=== PATIENT | male | born 1960 | race African-American/Black ===

== ENCOUNTER 2018-04-04 10:50 | Inpatient (IN) ==
[2018-04-04] MEDS ORDERED: TYLENOL PO PRN (11:36)
[2018-04-04] MEDS ORDERED: SODIUM CHLORIDE 0.9% INJ PRN (11:36)
[2018-04-04] MEDS ORDERED: PHENERGAN IV PRN (11:36)
[2018-04-04] MEDS: DUONEB (A & A) INH SCH ×4 (12:05→23:05)
[2018-04-04 12:12] LABS: BASO# 0.01 X1000 (0.0-0.2); BASO% 0.2 % (0.0-0.8); EOS# 0.02 X1000 (0.0-0.7); EOS% 0.4 % (0.0-10.0); HEMATOCRIT 45.5 % (42.0-52.0); HEMOGLOBIN 15.3 g/dL (14.0-18.0); LYMPH# 1.14 X1000 (1.2-3.4); LYMPH% 21.8 % (20.5-51.1); MCH 27.9 PG (27-31); MCHC 33.6 g/dL (33-37); MCV 82.9 FL (81-99); MONO# 0.42 X1000 (0.11-0.59); MPV 9.4 FL (7.4-10.4); NEUT# 3.65 X1000 (1.4-6.5); NEUT% 69.6 % (42.2-75.2); PLT 212 X1000 (130-400); RBC 5.49 XMIL (4.7-6.1); RDW 12.8 % (11.5-14.5); WBC 5.24 X1000 (4.8-10.8)
[2018-04-04 12:34] LABS: AGAP 13; BUN 16 mg/dL (8-22); CALCIUM 9.9 mg/dL (8.8-10.2); CHLORIDE 94 mmol/L (98-107); COSMO 279; CREATININE 1.1 mg/dL (0.7-1.2); ESTIMATED GFR > 60; GLUCOSE 104 mg/dL (70-104); POTASSIUM 3.5 mmol/L (3.5-5.1); SODIUM 139 mmol/L (136-145); TCO2 32 mmol/L (25-35)
--- NOTE | 2018-04-04 12:39 | Diag Imaging Result Doc PS360 ---
CHEST-2 VIEWS - 04/04/2018 INDICATION: COPD EXACERBATION COMPARISON: 08/26/2017 FINDINGS: Stable advanced COPD. No infiltrates or masses. No pneumothorax or pleural effusion. Heart size is normal. Stable bilateral hilar lymphadenopathy. IMPRESSION: No change from prior. Electronically signed by Joce Marcano 04/04/2018 12:37 PM
[2018-04-04] MEDS: NS 1,000 ML IV SCH (13:04)
[2018-04-04] MEDS: LEVAQUIN 500 MG/D5W 500 MG/100 ML IVPB IV SCH (13:04)
[2018-04-04] MEDS: WELLBUTRIN SR PO SCH (13:04)
[2018-04-04] MEDS: SOLU-MEDROL IV SCH ×3 (13:05→23:21)
[2018-04-04] MEDS: LOVENOX SUBQ SCH (13:05)
[2018-04-04] MEDS: TUSSIONEX LIQUID PO PRN (20:05)
[2018-04-04] MEDS: LIPITOR PO SCH (20:05)
[2018-04-04] MEDS: REMERON PO SCH (20:05)
[2018-04-04] MEDS: ZOLOFT PO SCH (20:06)
[2018-04-05] MEDS: DUONEB (A & A) INH SCH ×6 (03:05→23:10)
[2018-04-05] MEDS: NS 1,000 ML IV SCH ×2 (04:18→18:07)
[2018-04-05] MEDS: WELLBUTRIN SR PO SCH ×3 (05:00→14:37)
[2018-04-05] MEDS: SOLU-MEDROL IV SCH ×4 (05:00→23:17)
[2018-04-05] MEDS: PATIENT'S OWN MED PO SCH (10:15)
[2018-04-05] MEDS: PROTONIX PO SCH (11:32)
[2018-04-05] MEDS: LOVENOX SUBQ SCH (11:32)
[2018-04-05] MEDS: LEVAQUIN 500 MG/D5W 500 MG/100 ML IVPB IV SCH (11:32)
--- NOTE | 2018-04-05 13:24 | PROGRESS NOTE ---
DATE: 04/05/2018 SUBJECTIVE: The patient was admitted yesterday with an acute exacerbation of chronic obstructive pulmonary disease. The patient had failed outpatient treatment with antibiotic intervention. The patient was placed on IV Solu-Medrol, levofloxacin, oxygen supplementation, and routine bronchodilators. Over the course of the first 24 hours, the patient states he has achieved significant improvement. He notes a decrease in his work of breathing. He denies fevers, chills, nausea or vomiting at the present time. His p.o. intake is adequate. OBJECTIVE: T-max 98.4, heart rate 77 to 95, respirations 14 to 20, blood pressure 98 to 126/59 to 84. General: Thin in no acute distress. Cardiovascular: Regular rate and rhythm. No significant murmurs, rubs, or gallops. Pulmonary: Prolonged expiratory phase. Adequate air movement. Abdomen soft, nontender, nondistended. Positive bowel sounds. Extremities: Moves all extremities well. No significant clubbing, cyanosis, or edema. Dermatologic evaluation reveals no evidence of rash. LABORATORY DATA: White blood cell count 5.24, hemoglobin 15.3, hematocrit 45.5. Platelet count 212,000. Sodium 139, potassium 3.5, chloride 94, bicarb 32. BUN 16, creatinine 1.1, glucose 104. Calcium 9.9. Chest x-ray revealed no evidence of pneumonia. ASSESSMENT AND PLAN: 1. Acute exacerbation of chronic obstructive pulmonary disease - As described, the patient failed outpatient intervention. Over the course of the first 24 hours, the patient's symptoms have improved considerably. For now, we will continue his current regimen including levofloxacin, Solu-Medrol, and DuoNeb. We will encourage incentive spirometry and aspiration precautions. If the patient's condition continues to improve in the morning, we will plan to initiate prednisone taper. 2. Reflux disease - The patient has longstanding disease. He complains of intermittent burning in his chest with eating. We will resume his pantoprazole therapy. 3. Depression - We will continue patient's home regimen. 4. Hyperlipidemia - We will continue patient on atorvastatin therapy. DISPOSITION: At this point, the patient continues to require [facility] care in a hospital setting. We will plan discharge home once appropriate. cc: MD Servando Iqbal MD
[2018-04-05] MEDS: SPIRIVA INH SCH ×2 (15:34→15:56)
[2018-04-05] MEDS: REMERON PO SCH (20:36)
[2018-04-05] MEDS: TUSSIONEX LIQUID PO PRN (20:36)
[2018-04-05] MEDS: ZOLOFT PO SCH (20:36)
[2018-04-05] MEDS: LIPITOR PO SCH (20:36)
[2018-04-06] MEDS: SOLU-MEDROL IV SCH ×4 (05:34→23:09)
[2018-04-06] MEDS: WELLBUTRIN SR PO SCH ×3 (05:34→12:11)
[2018-04-06] MEDS: PROTONIX PO SCH ×2 (05:34→06:02)
[2018-04-06] MEDS: NS 1,000 ML IV SCH (05:35)
[2018-04-06] MEDS: DUONEB (A & A) INH SCH ×5 (07:47→23:20)
[2018-04-06] MEDS: SPIRIVA INH SCH ×2 (07:47→09:20)
--- NOTE | 2018-04-06 10:09 | Diag Imaging Result Doc PS360 ---
EXAM: CHEST-2 VIEWS INDICATION: Shortness of breath TECHNIQUE: 2 views COMPARISON: 04/04/2018 FINDINGS: COPD changes are again noted. The lungs are grossly clear. There is no new consolidation. Cardiac silhouette is stable. IMPRESSION: Stable chest. Electronically signed by Carl Wilson 04/06/2018 10:06 AM
[2018-04-06] MEDS: PATIENT'S OWN MED PO SCH (10:30)
[2018-04-06] MEDS: LEVAQUIN 500 MG/D5W 500 MG/100 ML IVPB IV SCH (10:52)
[2018-04-06] MEDS: LOVENOX SUBQ SCH (10:52)
[2018-04-06] MEDS: MUCINEX DM PO SCH ×2 (10:52→21:08)
--- NOTE | 2018-04-06 12:29 | PROGRESS NOTE ---
DATE: 04/06/2018 SUBJECTIVE: The patient was admitted on Saturday with an acute exacerbation of chronic obstructive pulmonary disease having failed outpatient antibiotic intervention. He was started on IV Solu- Medrol, levofloxacin, oxygen supplementation, and routine bronchodilators. Over the course of the first 24 hours, patient achieved significant improvement. The patient was continued on IV Solu- Medrol, IV antibiotics and bronchodilators. Over the last 24 hours, patient states he did reasonably well until this morning. At that time, he noted an increase in wheezing. He notes some posterior pharyngeal congestion and some mild shortness of breath. He denies fevers, chills, nausea, or vomiting. His p.o. intake is reasonable. OBJECTIVE: T-max 97.8 degrees, heart rate 78 to 87, respirations 14, blood pressure 103-129/56 to 76.General: Thin, no acute distress. Cardiovascular: Regular rate and rhythm. No significant murmurs, rubs, or gallops. Pulmonary: Mild intermittent wheezing, worse from yesterday. Adequate air movement. Abdomen: Soft, nontender, nondistended. Positive bowel sounds. Extremities: Moves all extremities well. No significant clubbing, cyanosis, or edema. Dermatologic: Evaluation reveals no evidence of rash. LABORATORY DATA: None. IMAGING STUDIES: Chest x-ray revealed stable chest. ASSESSMENT AND PLAN: 1. Acute exacerbation of chronic obstructive pulmonary disease--the patient is currently being treated with intravenous levofloxacin, Solu-Medrol, and DuoNebs. In the setting of persistent wheezing, we will hold off on beginning his steroid taper as I had originally planned. Chest x-ray, as above, revealed no evidence of a progression of disease. We will initiate Mucinex DM. We will continue to encourage incentive spirometry and aspiration precautions. We will discontinue intravenous fluids. At this point, we will hold off on any additional changes. Should the patient demonstrate evidence of a decline, we will have a low threshold for broadening his antibiotic intervention. 2. Reflux disease--patient has longstanding disease. The patient's pantoprazole was resumed yesterday. We will encourage aspiration precautions. 3. Depression--will continue patient on his home regimen. 4. Hyperlipidemia--we will continue patient on atorvastatin therapy. 5. Disposition--at this point, patient continues to require halfway care in a hospital setting. We will plan discharge home once appropriate. cc: MD Servando Iqbal MD
[2018-04-06] MEDS: LIPITOR PO SCH (21:08)
[2018-04-06] MEDS: REMERON PO SCH (21:08)
[2018-04-06] MEDS: ZOLOFT PO SCH (21:08)
[2018-04-06] MEDS: TUSSIONEX LIQUID PO PRN (21:08)
[2018-04-07] MEDS: DUONEB (A & A) INH SCH ×6 (03:24→23:02)
[2018-04-07] MEDS: SOLU-MEDROL IV SCH ×4 (05:54→21:43)
[2018-04-07] MEDS: WELLBUTRIN SR PO SCH ×3 (05:54→12:02)
[2018-04-07] MEDS: PROTONIX PO SCH ×2 (05:54→06:02)
[2018-04-07] MEDS: SPIRIVA INH SCH (08:44)
--- NOTE | 2018-04-07 08:51 | PROGRESS NOTE ---
DATE: 04/07/2018 SUBJECTIVE: Mr. Cat was admitted to [facility] with acute COPD exacerbation. He continues with mild shortness of breath while walking from his bed to the bathroom, and a mild persistent cough. At times, the cough is productive of yellowish sputum. Chest x-ray from 04/06/2018 demonstrated hyperinflation of the lung harrell, but no obvious infiltrates or effusions. He continues to wheeze. OBJECTIVE: Vital Signs: Temperature 97.8 degrees, pulse 87, respirations 14, BP 103/56. CV: Regular rate and rhythm. Lungs: Distant breath sounds with increased periods of expiration. There are scattered end-expiratory wheezing with forced expiration. Abdomen: Soft, nontender, with active bowel sounds. ASSESSMENT AND PLAN: Acute chronic obstructive pulmonary disease exacerbation. Clinically, he is a little bit better. He is still wheezing and has a productive cough. We will continue Spiriva hand inhaler, intravenous Solu-Medrol, and DuoNeb nebulizer treatments, as well as intravenous Levaquin. I will add Symbicort 160/4.5 two puffs twice daily. cc: Servando Scott MD
[2018-04-07] MEDS: TUSSIONEX LIQUID PO PRN (10:06)
[2018-04-07] MEDS: MUCINEX DM PO SCH ×2 (10:06→21:44)
[2018-04-07] MEDS: PATIENT'S OWN MED PO SCH (10:08)
[2018-04-07] MEDS: SYMBICORT 160/4.5 MICROGM INHALER INH SCH ×2 (11:14→19:15)
[2018-04-07] MEDS: LEVAQUIN 500 MG/D5W 500 MG/100 ML IVPB IV SCH (12:02)
[2018-04-07] MEDS: LOVENOX SUBQ SCH (12:02)
[2018-04-07] MEDS: LIPITOR PO SCH (21:44)
[2018-04-07] MEDS: ZOLOFT PO SCH (21:44)
[2018-04-07] MEDS: REMERON PO SCH (21:44)
[2018-04-08] MEDS: DUONEB (A & A) INH SCH ×3 (03:30→11:07)
[2018-04-08] MEDS: WELLBUTRIN SR PO SCH ×2 (06:00→12:30)
[2018-04-08] MEDS: PROTONIX PO SCH (06:00)
[2018-04-08] MEDS: SOLU-MEDROL IV SCH ×2 (06:00)
[2018-04-08] MEDS: SYMBICORT 160/4.5 MICROGM INHALER INH SCH (07:31)
[2018-04-08] MEDS: SPIRIVA INH SCH ×2 (07:31→09:31)
[2018-04-08] MEDS: PATIENT'S OWN MED PO SCH (08:53)
[2018-04-08] MEDS: MUCINEX DM PO SCH (08:53)
[2018-04-08] MEDS: TUSSIONEX LIQUID PO PRN (09:00)
[2018-04-08] MEDS ORDERED: COZAAR PO SCH (09:00)
--- NOTE | 2018-04-08 09:06 | PROGRESS NOTE ---
DATE: 04/08/2018 SUBJECTIVE: Mr. Hammond was admitted to [facility] with an acute COPD exacerbation. He is maintaining O2 sats of 92%-96% on 2 L of O2. We removed his oxygen and, while sitting up in bed, his O2 sat dropped to 84%. He continues with mild shortness of breath with activities such as walking from the bed to the bathroom. His chest x-ray demonstrated chronic COPD changes. He is really not wheezing significantly at this time. His blood pressure is fluctuating. He denies any chest pain, palpitations, or anginal equivalents. OBJECTIVE: This morning, his blood pressure was 163/95, pulse 82, respirations 18, temperature 97.6. CV: Regular rate and rhythm. Lungs: Distant breath sounds with increased period of expiration. Abdomen: Soft, nontender, with active bowel sounds. ASSESSMENT AND PLAN: 1. Chronic respiratory failure with hypoxia secondary to chronic obstructive pulmonary disease with a history of tobacco abuse. Clinically, he feels better but was hypoxic on room air. We will resume 2 L of O2 per nasal cannula. I anticipate that he is going to need chronic continuous home oxygen. We will arrange for a home oxygen concentrator, as well as a portable concentrator. We will continue Advair, Spiriva, DuoNeb nebulizer treatments, and wean down on the IV steroids. 2. Hypertension. Blood pressure is a little bit too high. I will add losartan 25 mg daily. cc: Servadno Scott MD
[2018-04-08] MEDS: LOVENOX SUBQ SCH (10:43)
[2018-04-08] MEDS: LEVAQUIN 500 MG/D5W 500 MG/100 ML IVPB IV SCH (10:43)
[2018-04-08 11:45] VITALS: BP 151/86
[2018-04-08] MEDS ORDERED: SOLU-MEDROL IV SCH (14:00)
[2018-04-08] MEDS ORDERED: DUONEB (A & A) INH SCH (16:00)
--- NOTE | 2018-04-08 22:07 | DISCHARGE SUMMARY ---
ADMISSION DATE: 04/04/2018 DISCHARGE DATE: 04/08/2018 DISCHARGE DIAGNOSES: 1. Chronic respiratory failure with hypoxia. 2. Acute chronic obstructive pulmonary disease exacerbation with bronchitis. 3. Nicotine dependence. 4. Essential hypertension. 5. Gastroesophageal reflux disease. 6. Depression. DISCHARGE INSTRUCTIONS: 1. Return to clinic in 1 week to see me, Dr. Zaeher Scott. 2. Activity as tolerated. 3. Healthy-heart diet. MEDICATIONS: 1. DuoNeb nebulized t.i.d. 2. Remeron 15 mg at bedtime. 3. Atorvastatin 40 mg at bedtime. 4. Bupropion SR 150 mg b.i.d. 5. Tussionex 5 mL every 12 hours p.r.n. cough. 6. Losartan 25 mg daily. 7. Spiriva 1 inhalation daily. 8. Advair 250/50 2 puffs b.i.d. 9. Zoloft 50 mg daily. 10.Pantoprazole 40 mg daily. PHYSICAL EXAMINATION: GENERAL: This is a well-developed, well-nourished, pleasant 57-year-old gentleman in no apparent distress. VITAL SIGNS: Temperature 98, pulse 88, respiratory rate 18, BP 151/86. CV: Regular rate and rhythm. LUNGS: Distant breath sounds with increased period of expiration. ABDOMEN: Soft and nontender with active bowel sounds. No hepatosplenomegaly. No abdominal bruits. HOSPITAL COURSE: Mr. Bonifacio Cat is a 57-year-old gentleman with a longstanding history of chronic obstructive pulmonary disease and sarcoidosis who was admitted to [facility] with an acute chronic obstructive pulmonary disease exacerbation. He was initially treated with supplemental O2, IV Levaquin, IV Solu-Medrol, and DuoNeb nebulizer treatments. He was continued on his regular home medicines including Spiriva and Advair. His initial chest x-ray demonstrated chronic obstructive pulmonary disease type changes. A subsequent chest x-ray demonstrated chronic obstructive pulmonary disease type changes but no evidence of infiltrate or effusions. Over the course of the next several days, he made good steady progress with aggressive therapy, and we were able to titrate downward on the dosage of IV Solu-Medrol. We checked a room O2 saturation when the patient was in chronic stable condition today, and it was 84%. We resumed O2 at 2 liters per nasal cannula, and his O2 saturations were in the range of 96% to 98%. He does have a longstanding history of tobacco abuse. He has been smoking a pack of cigarettes per day. I really stressed to him the fact that continued smoking would only worsen his underlying chronic obstructive pulmonary disease and would greatly increase his risk of developing heart disease, stroke and lung cancer. He voiced understanding of my concerns and wanted to try to stop smoking. He had tried Chantix in the past. We started him on Wellbutrin SR 150 mg b.i.d., which he tolerated well without vivid dreams or suicidal ideation. He has had both a Pneumovax as well as Prevnar vaccinations in the past. We will discharge him home on his regular medications, including Advair 250/50 2 puffs b.i.d. and Spiriva 1 inhalation daily. He will continue a prednisone taper. We will arrange for him to do DuoNeb nebulizer treatments at home. We have arranged for a home concentrator and a portable O2 concentrator. He will wear O2 at 2 liters per nasal cannula continuously. His blood pressure fluctuated during this hospitalization, and we added Losartan 25 mg daily. Having reached maximum hospital benefit, the patient was discharged in stable condition. cc: Servando Scott MD
[2018-04-09] MEDS ORDERED: PREDNISONE PO SCH (09:00)
[2018-04-12] MEDS ORDERED: PREDNISONE PO SCH (09:00)
[2018-04-15] MEDS ORDERED: PREDNISONE PO SCH (09:00)
== END 2018-04-08 16:53 | disposition home or self-care (01) | DRG 190 ==
LOC: DIRADM 10:50 → 4N 11:18
PROVIDERS: ADMIT Internal Medicine; ATTEND Internal Medicine
CPT/HCPCS: 71020; 71046; 80048; 85025; 87040; 87070; 87205; 89220; 94640; 94761; 94799; A9270; J1650; J1956; J2930; J7030

== ENCOUNTER 2019-06-05 08:58 | Inpatient (IN) ==
[2019-06-05] MEDS ORDERED: SODIUM CHLORIDE 0.9% INJ PRN (10:04)
[2019-06-05] MEDS ORDERED: NS 500 ML IV ONE (10:04)
[2019-06-05] MEDS ORDERED: VENTOLIN HFA INH PRN (10:19)
[2019-06-05] MEDS: FLAGYL 500 MG/NS 500 MG/100 ML IVPB IV SCH ×3 (11:00→22:42)
[2019-06-05 11:23] LABS: BASO# 0.02 X1000 (0.0-0.2); BASO% 0.2 % (0.0-0.8); EOS# 0.01 X1000 (0.0-0.7); EOS% 0.1 % (0.0-10.0); HEMATOCRIT 41.7 % (42.0-52.0); HEMOGLOBIN 14.2 g/dL (14.0-18.0); IMM GRAN# 0.03 X1000 (0.0-0.04); IMM GRAN% 0.3 % (0.0-0.5); LYMPH# 0.41 X1000 (1.2-3.4); LYMPH% 3.6 % (20.5-51.1); MCH 28.9 PG (27-31); MCHC 34.1 g/dL (33-37); MCV 84.9 FL (81-99); MONO# 0.39 X1000 (0.11-0.59); MONO% 3.4 % (1.7-9.3); MPV 10.2 FL (7.4-10.4); NEUT# 10.56 X1000 (1.4-6.5); NEUT% 92.4 % (42.2-75.2); PLT 306 X1000 (130-400); RBC 4.91 XMIL (4.7-6.1); RDW 13.7 % (11.5-14.5); WBC 11.42 X1000 (4.8-10.8)
[2019-06-05] MEDS: NS 1,000 ML IV SCH ×2 (11:30→22:43)
[2019-06-05 11:31] LABS: INR 0.97
[2019-06-05 11:32] LABS: AGAP 15; BUN 20 mg/dL (8-22); CALCIUM 9.4 mg/dL (8.8-10.2); CHLORIDE 93 mmol/L (98-107); COSMO 271; ESTIMATED GFR > 60; GLUCOSE 108 mg/dL (70-104); POTASSIUM 3.7 mmol/L (3.5-5.1); SODIUM 134 mmol/L (136-145); TCO2 26 mmol/L (25-35)
[2019-06-05] MEDS: PHENERGAN IV PRN ×2 (11:42→23:03)
[2019-06-05] MEDS: LEVAQUIN 500 MG/D5W 500 MG/100 ML IVPB IV SCH (11:45)
[2019-06-05] MEDS: DUONEB (A & A) INH SCH ×4 (11:52→23:46)
[2019-06-05 11:54] LABS: BANDS 16 % (0-1); LYMPHS 4 % (21-51); MONO 4 % (1-9); SEGS 76 % (42-75)
[2019-06-05] MEDS ORDERED: DILAUDID IV PRN (12:05)
--- NOTE | 2019-06-05 12:16 | Diag Imaging Result Doc PS360 ---
EXAM: CHEST-PORTABLE 06/05/2019 HISTORY: copd TECHNIQUE: AP portable at 1211 COMMENT: There may be COPD. The heart size and pulmonary vascularity are within normal limits. Compared to 01/19/2019 there has been no significant change. IMPRESSION: No evidence of acute disease. Electronically signed by Sathish Santamaria 06/05/2019 12:14 PM
--- NOTE | 2019-06-05 13:15 | Diag Imaging Result Doc PS360 ---
EXAM: CT ABDOMEN/PELVIS W/WO CONTRAS 06/05/2019 HISTORY: severe RLQ PAIN, SUSPECT ACUTE APPENDICITIS TECHNIQUE: This exam was performed using automated exposure control, adjustment of mA or kV according to patient size, and/or use of iterative reconstruction technique. COMMENT: There is COPD. The dependent opacities present in the costophrenic sulci bilaterally on 09/05/2015 are no longer present. There is no evidence of nephrolithiasis or hydronephrosis. There is no evidence of cholelithiasis. There are scattered colonic diverticula. The aorta is not distended. The mesenteric and renal arteries are patent. There are no renal masses. The spleen and adrenal glands are not enlarged. The liver contains a small cyst near the gallbladder fossa. The pancreas is unremarkable. There is no evidence of bowel obstruction. Pelvis: There are multiple fluid-filled small bowel loops. There is no oral contrast in the distal small bowel colon. The urinary bladder is not distended. There is no free fluid. There are numerous diverticula present in the sigmoid colon. There is pericolic inflammation around the sigmoid colon. The appendix is not clearly identifiable. The regional skeleton is intact. IMPRESSION: While the possibility of appendicitis cannot be entirely excluded, the inflammatory process in the pelvis is apparently related to acute diverticulitis. There is also an apparent localized ileus. Electronically signed by Sathish Santamaria 06/05/2019 1:13 PM
[2019-06-05 14:41] LABS: PTT < 20.0 Seconds (22.3-41.8)
[2019-06-05] MEDS: TYLENOL PO PRN (16:28)
[2019-06-05] MEDS: MORPHINE IV PRN (18:07)
--- NOTE | 2019-06-05 18:13 | PROGRESS NOTE ---
DATE: 06/05/2019 SUBJECTIVE: Mr. Cat was admitted to [facility] earlier this morning with severe right lower quadrant abdominal pain in association with nausea and vomiting. CT scan of the abdomen and pelvis demonstrated pericolic inflammation around the sigmoid colon. The appendix was not clearly identifiable. He had what appeared to be an early ileus. This afternoon he continues with right lower quadrant abdominal pain, but it seems less intense as compared to admission. He has not had any nausea or vomiting. Pain has improved with IV Dilaudid. Blood pressure is trending upward with fluids and off losartan. OBJECTIVE: Vital signs: Temperature 97.3 degrees, pulse 98, respirations 20, BP 122/64. Cardiovascular: Regular rate and rhythm. Lungs: Clear. Abdomen: Marked right lower quadrant tenderness to deep palpation. There is some guarding. No rebound. IMPRESSION: 1. Acute diverticulitis. Clinically he is better. We will continue to rehydrate him with normal saline and continue broad-spectrum antibiotics including levofloxacin and metronidazole. He has taken sips of liquids this afternoon, and we will advance his diet as tolerated. 2. Hypertension. Blood pressure is trending upward with fluids. We will continue to hold the losartan. Once his systolic blood pressures are greater than 140, we will resume the losartan. cc: Servando Scott MD
[2019-06-06] MEDS: MORPHINE IV PRN ×3 (01:28→17:47)
[2019-06-06] MEDS: DUONEB (A & A) INH SCH ×6 (03:18→23:16)
[2019-06-06] MEDS: FLAGYL 500 MG/NS 500 MG/100 ML IVPB IV SCH ×4 (04:08→22:14)
[2019-06-06] MEDS: PROTONIX PO SCH (06:01)
[2019-06-06] MEDS: NS 1,000 ML IV SCH ×2 (06:06→23:23)
[2019-06-06] MEDS: PHENERGAN IV PRN ×3 (07:01→22:14)
[2019-06-06] MEDS: LEVAQUIN 500 MG/D5W 500 MG/100 ML IVPB IV SCH (09:44)
[2019-06-06] MEDS: ZOLOFT PO SCH (09:44)
[2019-06-06] MEDS: HYGROTON PO SCH (09:45)
[2019-06-06] MEDS ORDERED: SODIUM CHLORIDE 0.9% INJ ONE (11:30)
[2019-06-06] MEDS ORDERED: PHENERGAN IV ONE (11:30)
[2019-06-06 13:47] LABS: BASO# 0.01 X1000 (0.0-0.2); BASO% 0.1 % (0.0-0.8); HEMATOCRIT 37.6 % (42.0-52.0); HEMOGLOBIN 12.2 g/dL (14.0-18.0); MCH 27.7 PG (27-31); MCHC 32.4 g/dL (33-37); MCV 85.3 FL (81-99); MONO# 0.34 X1000 (0.11-0.59); MONO% 3.4 % (1.7-9.3); MPV 9.6 FL (7.4-10.4); NEUT# 9.06 X1000 (1.4-6.5); NEUT% 90.5 % (42.2-75.2); PLT 197 X1000 (130-400); RBC 4.41 XMIL (4.7-6.1); RDW 13.8 % (11.5-14.5); WBC 10.01 X1000 (4.8-10.8)
[2019-06-06 13:53] LABS: AGAP 11; ALB/GLOB RATIO 1.3; ALBUMIN 3.7 g/dL (3.5-5.0); ALKALINE PHOSPHATASE 54 U/L (32-122); BUN 13 mg/dL (8-22); CALCIUM 8.5 mg/dL (8.8-10.2); CHLORIDE 94 mmol/L (98-107); COSMO 270; CREATININE 0.8 mg/dL (0.7-1.2); ESTIMATED GFR > 60; GLUCOSE 120 mg/dL (70-104); GOT 14 U/L (10-34); GPT 8 U/L (10-44); POTASSIUM 2.8 mmol/L (3.5-5.1); SODIUM 134 mmol/L (136-145); TCO2 29 mmol/L (25-35); TOTAL BILIRUBIN 0.39 mg/dL (0.20-1.00); TOTAL PROTEIN 6.5 g/dL (6.3-8.3)
[2019-06-06 14:29] LABS: LARGE PLATELETS OCCASIONAL; LYMPHS 12 % (21-51); MONO 3 % (1-9); SEGS 85 % (42-75)
--- NOTE | 2019-06-06 16:14 | GENERAL SURGERY CONSULTATION ---
DATE: 06/06/2019 REASON FOR CONSULTATION: Diverticulitis. CHIEF COMPLAINT: Lower abdominal pain. HISTORY OF PRESENT ILLNESS: This is a 58-year-old gentleman who has COPD and sarcoidosis. He was admitted yesterday by Dr. Tello Scott for lower abdominal pain. CT scan showed diverticulitis, uncomplicated, but the appendix was not clearly visualized. He showed some improvement with his pain. He remains tender in the lower quadrants of his abdomen. He has had some associated nausea, vomiting. I was consulted for further input. He had a colonoscopy [address] Wyatt. Apparently, he has had bleeding polyps in the past. His brother had colon cancer, but he himself has not had colon cancer. In his usual state of health prior to this. He did have a high-fiber diet highresidual prior to this episode. He attributes it to that. MEDICAL HISTORY: COPD and sarcoid. He is on chronic home O2. SURGICAL HISTORY: He has had a prostatectomy presumably for cancer as well as a laparoscopic hernia repair. SOCIAL HISTORY: He does not smoke currently but did smoke in the past. He is on disability. FAMILY HISTORY: Colon cancer. REVIEW OF SYSTEMS: Ten point negative otherwise that what is mentioned in history of present illness. PHYSICAL EXAMINATION: Vital Signs: No fever documented in the last 24 hours. Heart rate for most part in the 90s low 100s. Blood pressure 130/80, oxygen saturation is 100% on 2 L. General: He is alert. He is very thin, but is in no acute distress. HEENT: No scleral icterus. No cervical masses. Cardiovascular: Normal rate. Pulmonary: No increased work of breathing but he is on nasal cannula. Abdomen: Soft. He is tender in the lower quadrants. There is some voluntary guarding but no rancho rebound or rigidity to suggest peritoneal signs. Peripheral Vascular: No lower extremity edema. Psychiatric: Appropriate affect. Neurologic: No gross deficits. Lymphatic: No cervical, axillary or inguinal adenopathy. LABORATORY DATA: White count was 11.4 on admission, it is down to 10, hematocrit 37. His creatinine is 0.8, potassium low at 2.8. I reviewed his CT scan. ASSESSMENT AND PLAN: A 58-year-old gentleman with uncomplicated diverticulitis stranding in the pelvis. He does apparently have abdominal wall mesh, history of prostatectomy. Given this we will continue with medical management as I do think he is showing some improvement. I am doubtful this is appendicitis after review of his CT scan. I suspect that the inflammation that we are seeing is related to his diverticulitis as he does have a lot of diverticula. He will need follow-up colonoscopy at least 6 weeks after resolution of this given his family history and his personal history of polyps to ensure that this is not an underlying etiology. We did discuss possibility of surgery and likelihood that this would require colostomy if we operate emergently. He understands all this and consents. cc: MD Srevando Pelletier MD MTDD
--- NOTE | 2019-06-06 16:30 | PROGRESS NOTE ---
DATE: 06/06/2019 SUBJECTIVE: The patient was admitted yesterday secondary to intractable right lower abdominal discomfort. CT scan was performed revealing inflammatory process in the pelvis apparently related to an acute diverticulitis. Appendicitis could not be fully ruled out. Apparent localized ileus was also identified. The patient was placed on levofloxacin and metronidazole therapy. Since admission, the patient continues to have considerable abdominal discomfort. He is requiring frequent treatment with Dilaudid as well as frequent treatments of Phenergan for nausea. Upon my arrival, patient was resting in bed. After my examination, patient developed acute vomiting secondary to his pain. He is unable to tolerate p.o. at present time. He denies fevers, chills, shortness of breath, or chest discomfort. OBJECTIVE: T-max 98.6 degrees, heart rate 91 to 100, respirations 16 to 20, blood pressure 111 to 130 over 58 to 82.General: No acute distress. Cardiovascular: Regular rate and rhythm. No significant murmurs, rubs, or gallops. Pulmonary: Prolonged expiratory phase. Adequate air movement. Abdomen: Exquisitely tender in the right lower quadrant, suprapubic and less in the left lower quadrant. Guarding throughout, no rebound. Decreased bowel sounds. Extremities: Moves all extremities well. No significant clubbing, cyanosis, or edema. Dermatologic: Evaluation reveals no evidence of rash. LABORATORY DATA: White blood cell count 10.01, hemoglobin 12.2, hematocrit 37.6, platelet count 197,000. Sodium 134, potassium 2.8, chloride 94, bicarb 29, BUN 13, creatinine 0.8, glucose 120, calcium 8.5, total bilirubin 0.39, total protein 6.5, albumin 3.9, alkaline phosphatase 54, AST 14, ALT 8. ASSESSMENT AND PLAN: 1. Intractable abdominal pain-CT scan suggests the probability of diverticulitis. Appendicitis could not be completely ruled out. The patient's examination remains quite concerning. As described above, patient developed nausea and vomiting after my examination. Because of persistent symptoms as well as inability to completely rule out appendicitis, we will consult Dr. Melendez for further surgical evaluation. At this point, he does not appear toxic, thus acute intervention is not warranted. We will continue levofloxacin and Flagyl therapy. 2. Intractable nausea and vomiting. This is secondary to above. We will place patient NPO. We will continue IV fluids and antibiotic agents. 3. Hypokalemia-we will replete today. This likely is a consequence of his nausea and vomiting. 4. Chronic obstructive pulmonary disease-we will continue patient on oxygen per protocol. 5. Disposition. At this point, patient continues to require half-way care in a hospital setting. We will plan discharge home once appropriate. cc: MD Servando Iqbal MD
[2019-06-06] MEDS: POTASSIUM CHLORIDE 20 MEQ/SWI 20 MEQ/100 ML IVPB IV SCH ×2 (17:45→19:54)
[2019-06-07] MEDS: MORPHINE IV PRN ×3 (01:52→15:33)
[2019-06-07] MEDS: PHENERGAN IV PRN ×4 (01:53→14:31)
[2019-06-07] MEDS: DUONEB (A & A) INH SCH ×6 (03:00→22:41)
[2019-06-07] MEDS: NS 1,000 ML IV SCH ×4 (03:27→22:26)
[2019-06-07] MEDS: FLAGYL 500 MG/NS 500 MG/100 ML IVPB IV SCH ×4 (03:37→22:25)
[2019-06-07 07:00] LABS: HEMATOCRIT 36.7 % (42.0-52.0); HEMOGLOBIN 11.8 g/dL (14.0-18.0); LYMPH% 3.4 % (20.5-51.1); MCH 27.8 PG (27-31); MCHC 32.2 g/dL (33-37); MCV 86.4 FL (81-99); MONO# 0.31 X1000 (0.11-0.59); MONO% 3.5 % (1.7-9.3); MPV 9.7 FL (7.4-10.4); NEUT# 8.13 X1000 (1.4-6.5); NEUT% 93.1 % (42.2-75.2); PLT 200 X1000 (130-400); RBC 4.25 XMIL (4.7-6.1); RDW 13.8 % (11.5-14.5); WBC 8.74 X1000 (4.8-10.8)
[2019-06-07 07:22] LABS: AGAP 14; ALB/GLOB RATIO 1.2; ALBUMIN 3.3 g/dL (3.5-5.0); ALKALINE PHOSPHATASE 52 U/L (32-122); BUN 15 mg/dL (8-22); CALCIUM 8.4 mg/dL (8.8-10.2); CHLORIDE 99 mmol/L (98-107); COSMO 280; CREATININE 0.8 mg/dL (0.7-1.2); ESTIMATED GFR > 60; GLUCOSE 124 mg/dL (70-104); GOT 15 U/L (10-34); GPT 8 U/L (10-44); POTASSIUM 3.1 mmol/L (3.5-5.1); SODIUM 139 mmol/L (136-145); TCO2 26 mmol/L (25-35); TOTAL BILIRUBIN 0.35 mg/dL (0.20-1.00); TOTAL PROTEIN 6.1 g/dL (6.3-8.3)
[2019-06-07] MEDS: NON-FORMULARY MED (Fluticasone/Umeclidin/Vilanter [Trelegy Ellipta 100-62.5-25] 0 EA) INH SCH (09:30)
[2019-06-07] MEDS: ZOLOFT PO SCH (09:32)
[2019-06-07] MEDS: PROTONIX PO SCH (09:32)
[2019-06-07] MEDS: HYGROTON PO SCH (09:32)
[2019-06-07] MEDS: POTASSIUM CHLORIDE 20 MEQ/SWI 20 MEQ/100 ML IVPB IV SCH ×2 (10:52→13:49)
[2019-06-07] MEDS: LEVAQUIN 500 MG/D5W 500 MG/100 ML IVPB IV SCH (10:55)
--- NOTE | 2019-06-07 12:33 | GENERAL SURGERY PROGRESS NOTE ---
DATE: 06/07/2019 SUBJECTIVE: No fevers, no tachycardia overnight. He has had some persistent nausea and vomiting. His pain is improving. OBJECTIVE: On examination, he is alert, in no acute distress. Cardiovascular: Normal rate. Abdomen: Soft. He is tender in the lower quadrants of the abdomen and I feel as though he is more soft and less tender than yesterday, with no rancho peritonitis. White count is 8, hematocrit is 36. Creatinine 0.8. Bilirubin is normal. No further imaging. ASSESSMENT AND PLAN: This is a 58-year-old gentleman with diverticulitis. There is no evidence of perforation or abscess on his initial scan. His pain in the abdominal exam is gradually improving but has been a little slow to do so, but his white count continues to downtrend. He is not have any fever or tachycardia. We will continue close observation. I would like to see him get better significantly over the next 24 to 48 hours. If he were to fail to show improvement, then we will need to consider surgical exploration, possible sigmoid colectomy. I did discuss this matter with the patient. We will continue to follow him closely. cc: MD Servando Pelletier MD
--- NOTE | 2019-06-07 16:49 | GENERAL SURGERY PROGRESS NOTE ---
DATE: 06/07/2019 SUBJECTIVE: Patient has had persistent nausea and vomiting over the course of the day today, increasing abdominal distention. Not really having much more in the way of pain. No fevers. No tachycardia. OBJECTIVE: General: He is alert. He is getting a breathing treatment, but no acute distress. Cardiovascular: Normal rate. Abdomen: Distended, more so than this morning. Remains soft and only mildly tender in the lower quadrants. There is no peritonitis. LABORATORY: I reviewed his labs from this morning. He did have electrolyte abnormalities with a potassium of 3.1; that was up from 2.8 yesterday. ASSESSMENT AND PLAN: This is a 58-year-old gentleman with diverticulitis that was uncomplicated, but now he has developed persistent worsening nausea, vomiting, and abdominal distention. I worry that he has developed an ileus. It is possible that he has developed worsening of his diverticulitis, maybe even an abscess, although I do not suspect that he has peritoneal signs. We will repeat his CT scan stat to evaluate for worsening. I suspect he will require a nasogastric tube and we will see what this shows. I did discuss the possibility of an operation versus an NG tube. cc: MD Servando Pelletier MD
--- NOTE | 2019-06-07 17:20 | PROGRESS NOTE ---
DATE: 06/07/2019 SUBJECTIVE: Upon my arrival this morning, patient was lying in bed. He continues to have considerable abdominal discomfort, however slightly improved from yesterday. Nausea and vomiting persists despite p.r.n. Phenergan. The patient denies passing flatus or having a bowel movement. He denies fevers, chills, shortness of breath, or chest discomfort. OBJECTIVE: T-max 98.6, heart rate 83 to 95, respirations 16 to 20, blood pressure 122 to 142 over 73 to 87.General: Well nourished, well developed, no acute distress. Cardiovascular: Regular rate and rhythm. No significant murmurs, rubs, or gallops. Pulmonary: Expiratory phase. Adequate air movement. Abdomen: Slightly distended. Significantly tender to palpation, worse in the right lower quadrant with guarding but no rebound. Decreased bowel sounds. Extremities: Moves all extremities well. No significant clubbing, cyanosis, or edema. Dermatologic: Evaluation reveals no evidence of rash. LABORATORY DATA: White blood cell count 8.74, hemoglobin 11.8, hematocrit 36.7, platelet count 200,000. Sodium 139, potassium 3.1, chloride 99, bicarb 26, BUN 15, creatinine 0.8, glucose 124, calcium 8.4, total bilirubin 0.35, total protein 6.1, albumin 3.3, alkaline phosphatase 52, AST 15, ALT 8. ASSESSMENT AND PLAN: 1. Intractable abdominal pain-CT scan suggests probable diverticulitis. Additionally, patient has a localized ileus. Examination today demonstrates a slightly distended abdomen as well as guarding in the right lower quadrant. At this point, we will continue IV antibiotics with levofloxacin and Flagyl therapy. White blood cell count is trending downwards. I suspect once patient resolves this ileus, his overall condition will improve. We will continue supportive care for now. 2. Intractable nausea and vomiting-this likely is secondary to diverticulitis/localized ileus. At this point, this has not reached consideration for nasogastric tube suction. Should this progress, we will have a low threshold for pursuing. We will continue as needed antiemetic agents for now. 3. Hypokalemia-we will replete again today. This likely is a consequence of his decreased p.o. intake and associated nausea and vomiting. 4. Chronic obstructive pulmonary disease-we will continue patient on oxygen per protocol. 5. Disposition. At this point, patient continues to require alf care in a hospital setting. We will plan discharge home once appropriate. cc: MD Srevando Iqbal MD
--- NOTE | 2019-06-07 17:32 | Diag Imaging Result Doc PS360 ---
CT ABD/PELVIS W/PO AND IV CON - 06/07/2019 INDICATION: N/V, distended abdomen COMPARISON: 06/05/2019 FINDINGS: There is COPD in the lung bases. There is a small amount of abdominal free air. There is also some minimal ascites. There is a proximal small bowel obstruction with several severely distended loops. The stomach is also distended. The main area of bowel abnormality appears to be in the midline of the pelvis. This is probably the transition point. At this location, there is a loop of small bowel with severe wall thickening and surrounding edema. The colon is mostly collapsed. There are numerous diverticula of the distal colon. Solid abdominal organs are all grossly normal. Bones are intact and well mineralized. IMPRESSION: Severe progression in both the inflammatory process and the small bowel obstruction. The abnormality appears to be centered at the pelvis at the midline, with a loop of small bowel with severe wall thickening. There is also ascites and a small amount of abdominal free air. This report was discussed with Dr. Eduard Melendez on 06/07/2019 at 5:26 PM and was readback. This exam was performed using automated exposure control, adjustment of mA or kV according to patient size, and/or use of iterative reconstruction technique Electronically signed by Joce Marcano 06/07/2019 5:30 PM
[2019-06-07] MEDS: LOVENOX SUBQ SCH (17:37)
[2019-06-07] MEDS ORDERED: HURRICAINE SPRAY (DOSE) ONE (17:42)
[2019-06-07] MEDS ORDERED: NORCURON ONE (17:55)
[2019-06-07] MEDS ORDERED: XYLOCAINE-MPF 2% ONE (17:55)
[2019-06-07] MEDS ORDERED: STERILE WATER INJ. ONE (17:55)
[2019-06-07] MEDS ORDERED: QUELICIN (DOSE) ONE (17:55)
[2019-06-07] MEDS ORDERED: DIPRIVAN 1% ONE (17:55)
[2019-06-07] MEDS ORDERED: ROBINUL ONE (17:55)
[2019-06-07] MEDS ORDERED: MORPHINE ONE (18:00)
--- NOTE | 2019-06-07 18:20 | Diag Imaging Result Doc PS360 ---
CHEST-PORTABLE - 06/07/2019 INDICATION: ng tube placement COMPARISON: 06/05/2019 FINDINGS: There is a nasogastric tube in good position in the stomach. IMPRESSION: Nasogastric tube in good position in the stomach. Electronically signed by Joce Marcano 06/07/2019 6:18 PM
[2019-06-07] MEDS ORDERED: PEPCID ONE (18:22)
[2019-06-07] MEDS ORDERED: PHENERGAN ONE (18:23)
--- NOTE | 2019-06-07 18:36 | GENERAL SURGERY PROGRESS NOTE ---
DATE: 06/07/2019 The patient underwent a CT scan that showed increasing inflammatory changes and small bowel obstruction with massively dilated small bowel and also a few focal areas of free intraabdominal air with some fluid that is new. Unclear the etiology of this. Discussed with the patient. Recommend emergent operation. Also talked to Dr. Patterson about this. We discussed risks of bleeding, infection, possibility of ostomy, possibility that most likely that this is temporary but could be permanent, possibility of bowel resection and other indicated procedures. He understands all this and consents. I placed a nasogastric tube and Chairez catheter. He is on antibiotics. We will go the operating room emergently for exploratory laparotomy. cc: MD Servando Pelletier MD
[2019-06-07] MEDS ORDERED: EPHEDRINE ONE (18:38)
[2019-06-07] MEDS ORDERED: NEOSTIGMINE ONE (18:58)
[2019-06-07] MEDS ORDERED: OFIRMEV 1000 MG/ISOTONIC SOLN 1,000 MG/100 ML BOTTLE ONE (19:10)
--- NOTE | 2019-06-07 21:34 | OPERATIVE NOTE ---
PROCEDURE DATE: 06/07/2019 PREOP DIAGNOSIS: Perforated diverticulitis. POSTOP: Perforated diverticulitis. PROCEDURE PERFORMED: 1. Sigmoid colectomy with end-colostomy. 2. Appendectomy. 3. Resection of contaminated abdominal wall mesh MANAGING COGNITIVE ENGINEER: Dr. Gallegos was present for the entirety of the case. He facilitated with exposure, identification anatomy distorted by acute inflammation. OPERATIVE FINDINGS: There was a perforation in the midportion of the sigmoid colon. The appendix was adherent to this. There was also a loop of small bowel stuck down to the sigmoid colon at the site of the perforation causing a high-grade bowel obstruction but no evidence of small-bowel perforation. There was a noninflamed Meckel diverticulum in the usual location. There is purulent ascites in each quadrant. SPECIMENS: 1. Sigmoid colon. 2. Appendix. OPERATIVE NOTE: Risks, benefits and alternatives were discussed with patient, consented to the procedure, seen preoperatively and surgical site was confirmed. He was taken to the operating room placed supine position. He already had a nasogastric tube and a Chairez catheter. His abdomen is prepped chlorhexidine solution and draped in usual fashion. After time-out, a midline incision was made and carried down the fascia, the fascia incised and the abdomen is entered open controlled fashion. We eviscerated the small bowel, was very dilated. We then had to replace the nasogastric tube and decompressed small bowel in a retrograde fashion back to the stomach and decompress this. A large volume of bilious output was obtained greater than a liter. At this point we mobilized the small bowel out of the pelvis. There was a clear transition point. There was no evidence of small-bowel perforation or injury. We packed the small bowel out of the way and began mobilizing the lateral aspect of the sigmoid colon along the white line protecting the ureter which was clearly identified. We selected a transection area proximally, divided this with a ANGEL blue-load stapler and used the LigaSure device, we took the mesentery distally. We preserved a left branch off the sigmoid artery. We carried it down to coalescence of the tenia in an area distal the perforation using a TA blue load stapler. We divided this here, passed the specimen off. At this point we took the mesoappendix, mobilized the appendix up and a second fire of the TA blue load was used to perform an appendectomy. We imbricated the staple line with a 3-0 Vicryl. We copiously irrigated the abdomen with several liters of warm saline and mobilized the descending colon allow easy admittance of the colon out. Confirmed a nasogastric tube was in good position. Hemostasis was noted. Left lower quadrant incision was made, carried down to the fascia, was incised and the muscle fibers were split through the rectus and the posterior fascia was incised and the colon was brought out through this. There was no twisting of it. At this point we placed omentum over the small bowel, was back in neutral position. Nelson wound protector was used throughout the case for exposure. There was contamination of abdominal wall mesh that was resected with May scissors back to healthy tissue. The fascia was closed with #1 running looped PDS suture. The skin was closed with surgical clips. We changed our gloves prior to wound closure. The wound was excluded. We removed the staple line from the colostomy and matured this in a Brooking fashion with 3-0 Vicryl suture. Ostomy appliance and a gauze Medipore dressing was applied. Counts correct. Urine was clear at the end the case. He is woken, transferred recovery. I spoke with the family. cc: MD Servando Pelletier MD MTDD
[2019-06-08] MEDS: DILAUDID IV PRN ×5 (02:45→22:43)
[2019-06-08] MEDS: DUONEB (A & A) INH SCH ×6 (03:32→23:13)
[2019-06-08] MEDS: FLAGYL 500 MG/NS 500 MG/100 ML IVPB IV SCH ×4 (04:19→22:43)
[2019-06-08] MEDS: MORPHINE IV PRN ×3 (04:26→19:55)
[2019-06-08] MEDS ORDERED: BLISTEX MEDICATED BERRY LIP BALM TOP PRN (04:30)
[2019-06-08 05:38] LABS: BASO# 0.01 X1000 (0.0-0.2); BASO% 0.1 % (0.0-0.8); HEMATOCRIT 36.2 % (42.0-52.0); HEMOGLOBIN 11.6 g/dL (14.0-18.0); LYMPH% 7.5 % (20.5-51.1); MCH 27.8 PG (27-31); MCV 86.6 FL (81-99); MONO# 0.55 X1000 (0.11-0.59); MONO% 6.9 % (1.7-9.3); MPV 9.3 FL (7.4-10.4); NEUT% 85.5 % (42.2-75.2); PLT 218 X1000 (130-400); RBC 4.18 XMIL (4.7-6.1); RDW 13.9 % (11.5-14.5); WBC 7.96 X1000 (4.8-10.8)
[2019-06-08 05:56] LABS: AGAP 12; ALB/GLOB RATIO 0.9; ALBUMIN 2.4 g/dL (3.5-5.0); ALKALINE PHOSPHATASE 36 U/L (32-122); BUN 12 mg/dL (8-22); CHLORIDE 103 mmol/L (98-107); COSMO 280; CREATININE 0.6 mg/dL (0.7-1.2); ESTIMATED GFR > 60; GLUCOSE 86 mg/dL (70-104); GOT 20 U/L (10-34); GPT 8 U/L (10-44); POTASSIUM 3.3 mmol/L (3.5-5.1); SODIUM 141 mmol/L (136-145); TCO2 26 mmol/L (25-35); TOTAL PROTEIN 5.1 g/dL (6.3-8.3)
[2019-06-08 06:28] LABS: LYMPHS 9 % (21-51); SEGS 91 % (42-75)
[2019-06-08] MEDS: PROTONIX PO SCH (06:32)
[2019-06-08] MEDS: NON-FORMULARY MED (Fluticasone/Umeclidin/Vilanter [Trelegy Ellipta 100-62.5-25] 0 EA) INH SCH (07:46)
[2019-06-08] MEDS: ZOLOFT PO SCH (09:07)
[2019-06-08] MEDS: LEVAQUIN 500 MG/D5W 500 MG/100 ML IVPB IV SCH (10:23)
[2019-06-08] MEDS: POTASSIUM CHLORIDE 20 MEQ/SWI 20 MEQ/100 ML IVPB IV SCH ×2 (11:31→14:59)
[2019-06-08] MEDS: NS 1,000 ML IV SCH ×3 (11:31→22:43)
--- NOTE | 2019-06-08 13:30 | PROGRESS NOTE ---
DATE: 06/08/2019 SUBJECTIVE: Mr. Cat is postoperative day #1 following sigmoid colectomy with end-colostomy and appendectomy secondary to perforated diverticulitis. He continues with abdominal distention, but has had no nausea or vomiting. He has not passed any flatus or had a bowel movement. He is breathing comfortably. O2 saturations are ranging from 97 to 98 percent on 3 L of O2. His most recent chest x-ray demonstrated nasogastric tube in good position in the stomach. OBJECTIVE: He is afebrile, pulse 88, respirations 17, and BP 117/73. CV regular rate and rhythm. Lungs clear. Abdomen mildly distended. Hypoactive bowel sounds. ASSESSMENT AND PLAN: 1. Chronic respiratory failure with hypoxia secondary to COPD on chronic home oxygen. We will continue supplemental oxygen, DuoNeb nebulizer treatments, and his regular medications including Trilogy. 2. Small bowel obstruction secondary to ruptured diverticulum. We will continue NG tube to low Gomco suction, fluid resuscitation and broad-spectrum antibiotics. Once he begins to pass gas and have bowel movements, we can hopefully clamp the NG tube and stop it. We will use morphine on an as-needed basis for pain. cc: Servando Scott MD
--- NOTE | 2019-06-08 14:10 | GENERAL SURGERY PROGRESS NOTE ---
DATE: 06/08/2019 SUBJECTIVE: He is more alert. Feels much better this morning. No fevers, no tachycardia overnight. OBJECTIVE: Vitals: Blood pressure 117/73, saturating 98% on 3 L. General: He is alert. Abdomen: Soft. Dressing is in place. Ostomy is pink, viable, some air in the bag. STACY drain serosanguineous. LABS: I reviewed his labs. White count 7, hematocrit 36, creatinine 0.6. ASSESSMENT AND PLAN: This is a 58-year-old gentleman status post Jessica's procedure with appendectomy for perforated diverticulitis. Recommend continuing antibiotics. We will keep his NG tube for now, anticipating ileus. We will keep his Chairez catheter as well. Plan on removing this tomorrow. He is on prophylactic Lovenox. Otherwise, out of bed and pain control. cc: MD Servando Pelletier MD
[2019-06-08] MEDS: LOVENOX SUBQ SCH (17:44)
[2019-06-08] MEDS: PHENERGAN IV PRN (22:55)
[2019-06-09] MEDS: DUONEB (A & A) INH SCH ×6 (03:14→23:20)
[2019-06-09] MEDS: FLAGYL 500 MG/NS 500 MG/100 ML IVPB IV SCH ×4 (04:15→22:36)
[2019-06-09] MEDS: DILAUDID IV PRN (04:15)
[2019-06-09] MEDS: NS 1,000 ML IV SCH ×3 (05:13→14:26)
[2019-06-09] MEDS: PROTONIX PO SCH (06:48)
[2019-06-09] MEDS: NON-FORMULARY MED (Fluticasone/Umeclidin/Vilanter [Trelegy Ellipta 100-62.5-25] 0 EA) INH SCH (07:59)
[2019-06-09] MEDS: MORPHINE IV PRN ×4 (08:25→20:13)
[2019-06-09] MEDS: ZOLOFT PO SCH (08:26)
--- NOTE | 2019-06-09 08:34 | PROGRESS NOTE ---
DATE: 06/09/2019 SUBJECTIVE: Mr. Cat is postoperative day number 2 following a Jessica procedure with appendectomy secondary to a ruptured diverticulum. He is still not passing any flatus or having bowel movement via the colostomy. He denies any nausea or vomiting. He does have a history of COPD. He is with complaint of mild shortness of breath. O2 saturations are ranging from 95% to 98% on 3 L of O2. He is breathing 14 to 17 times per minute. Lung harrell were clear. OBJECTIVE: Vital Signs: Temperature 98.1 degrees, pulse 88, respirations 14, BP 149/89. CV: Regular rate and rhythm. Lungs: Clear. Abdomen: Mildly distended. Hypoactive bowel sounds diffusely, and appropriately tender. ASSESSMENT AND PLAN: 1. Ruptured diverticulum and small-bowel obstruction, status post Jessica procedure with appendectomy. He is still not passing flatus or bowel movement via the colostomy. We will continue the nasogastric tube to low Gomco suction. We will continue broad-spectrum antibiotics, including Levaquin and Flagyl. We will discontinue the Chairez catheter today. 2. Chronic respiratory failure with hypoxia, on chronic home oxygen secondary to chronic obstructive pulmonary disease. His most recent chest x-ray was clear. Lung harrell are clear. He is maintaining good oxygen saturations. We will continue albuterol nebulizer treatments every 4 hours and supplemental oxygen. cc: Servando Scott MD
--- NOTE | 2019-06-09 08:49 | GENERAL SURGERY PROGRESS NOTE ---
DATE: 06/09/2019 SUBJECTIVE/OBJECTIVE: He has increasing dyspnea, although his O2 requirements remained 3 liters, saturating in the high 90s. He is alert. He is sitting straight in bed. There is some increased work of breathing, but he has no productive cough. His abdomen remains mildly distended. His ostomy is pink, viable. There is no air or stool in the bag. STACY drain serosanguineous, dressing intact. White count 7, hematocrit 36. Creatinine 0.6, potassium 3.3. ASSESSMENT AND PLAN: A 58-year-old gentleman status post Jessica's procedure for perforated diverticulitis. We will keep his nasogastric tube today and ensure that it is functioning normally. We will remove his Chairez catheter. Dr. Scott is addressing his pulmonary issues. We will replete his electrolytes. Otherwise, continue antibiotics. cc: MD Servando Pelletier MD
[2019-06-09] MEDS: LEVAQUIN 500 MG/D5W 500 MG/100 ML IVPB IV SCH (10:11)
[2019-06-09] MEDS: LOVENOX SUBQ SCH (16:11)
[2019-06-10] MEDS: MORPHINE IV PRN ×6 (00:40→22:07)
[2019-06-10] MEDS: NS 1,000 ML IV SCH ×3 (00:43→22:07)
[2019-06-10] MEDS: DUONEB (A & A) INH SCH ×6 (03:20→23:25)
[2019-06-10] MEDS: FLAGYL 500 MG/NS 500 MG/100 ML IVPB IV SCH ×4 (04:05→22:06)
[2019-06-10] MEDS: PROTONIX PO SCH (06:05)
[2019-06-10] MEDS: NON-FORMULARY MED (Fluticasone/Umeclidin/Vilanter [Trelegy Ellipta 100-62.5-25] 0 EA) INH SCH (07:26)
[2019-06-10] MEDS ORDERED: SALINE LOCK IV FLUID XX ONE (08:19)
--- NOTE | 2019-06-10 08:47 | Diag Imaging Result Doc PS360 ---
CHEST-PORTABLE - 06/10/2019 INDICATION: copd COMPARISON: 06/07/2019 FINDINGS: There is a nasogastric tube in good position the stomach. Lungs are very hyperexpanded compatible with COPD. No infiltrates or edema. Heart size is normal. IMPRESSION: COPD. No acute process. Electronically signed by Joce Marcano 06/10/2019 8:45 AM
[2019-06-10] MEDS: PROTONIX IV SCH (09:23)
[2019-06-10] MEDS: ZOLOFT PO SCH (09:23)
[2019-06-10] MEDS: LEVAQUIN 500 MG/D5W 500 MG/100 ML IVPB IV SCH (09:24)
--- NOTE | 2019-06-10 11:15 | GENERAL SURGERY PROGRESS NOTE ---
DATE: 06/10/2019 SUBJECTIVE: He feels better this morning. No longer short of breath. No fevers. No tachycardia. OBJECTIVE: Blood pressure 147/91. His abdomen is soft, less distended. His dressing is intact. Ostomy is pink, viable. There is minimal air in the bag. NG tube output has been minimal. ASSESSMENT AND PLAN: A 58-year-old gentleman status post Jessica's procedure. Still has an ileus. We will place an NG tube to gravity. He is starting to have some rumblings and colicky pain. Suspect that he will have return to function later today. If he does, we can remove his nasogastric tube and start him on low-volume clear liquids. Otherwise, continue antibiotics as current. He is on prophylactic Lovenox. I have encouraged him to be out of bed and ambulating. cc: MD Servando Pelletier MD
--- NOTE | 2019-06-10 13:56 | PROGRESS NOTE ---
DATE: 06/10/2019 SUBJECTIVE: Mr. Cat is postoperative day #3 following a Jessica procedure. When I saw him earlier this morning, he had been burping a great deal and passing small amounts of gas via the colostomy. In the interim period of time. Dr. Melendez has clamped his NG tube. He is tolerating ice chips without nausea, vomiting, or abdominal pain. He has a longstanding history of chronic respiratory failure with hypoxia on chronic home oxygen secondary to chronic obstructive pulmonary disease. He was with complaint of mild shortness of breath this morning. His O2 saturations have been ranging from 95% to 98 percent on 3 L of O2. His chest x-ray demonstrated hyperinflation of lung harerll consistent with COPD. No infiltrates or effusions were noted. OBJECTIVE: Vital Signs: Afebrile. Vital signs are stable. Cardiovascular: Regular rate and rhythm. Lungs: Distant breath sounds with increased period of expiration. Abdomen: Less distended and soft. ASSESSMENT AND PLAN: 1. Chronic respiratory failure with hypoxia secondary to chronic obstructive pulmonary disease. He appears to be euvolemic. I will stop his fluids. I will continue nebulizer treatments and supplemental O2. 2. Ruptured diverticulum and small bowel obstruction status post Jessica procedure. If he continues to be able to tolerate ice chips, I hope that they will be able to stop the nasogastric tube later today. cc: Servando Scott MD
[2019-06-10] MEDS: LOVENOX SUBQ SCH (16:59)
[2019-06-11] MEDS: DUONEB (A & A) INH SCH ×6 (03:20→23:15)
[2019-06-11] MEDS: MORPHINE IV PRN ×5 (03:27→20:04)
[2019-06-11] MEDS: PROTONIX PO SCH (06:04)
[2019-06-11] MEDS: FLAGYL 500 MG/NS 500 MG/100 ML IVPB IV SCH ×4 (06:06→23:41)
[2019-06-11] MEDS: NON-FORMULARY MED (Fluticasone/Umeclidin/Vilanter [Trelegy Ellipta 100-62.5-25] 0 EA) INH SCH (07:38)
[2019-06-11] MEDS: LEVAQUIN 500 MG/D5W 500 MG/100 ML IVPB IV SCH (09:47)
[2019-06-11] MEDS: PROTONIX IV SCH (09:47)
[2019-06-11] MEDS: ZOLOFT PO SCH (09:48)
[2019-06-11] MEDS: COZAAR PO SCH (09:50)
[2019-06-11] MEDS: NS 1,000 ML IV SCH ×2 (09:59→18:59)
--- NOTE | 2019-06-11 10:32 | PROGRESS NOTE ---
DATE: 06/11/2019 SUBJECTIVE: Mr. Cat has a history of essential hypertension. Blood pressure has been fluctuating off medications. He denies any chest pain, palpitations or anginal equivalents. His NG tube has been to gravity overnight. He has tolerated ice chips without nausea, vomiting, or abdominal pain. He continues to burp and pass small amounts of flatus in the colostomy. OBJECTIVE: Vital Signs: Temperature 97.8 degrees, pulse 93, respirations 18, BP 144/90. CV: Regular rate and rhythm. Lungs: Clear. Abdomen: Soft, nontender with active bowel sounds. No hepatosplenomegaly. No abdominal bruits. ASSESSMENT AND PLAN: 1. Hypertension. Blood pressure is trending upward. I will resume losartan 25 mg daily. 2. Acute diverticulitis, small bowel obstruction and ruptured diverticulum. Clinically, he continues to do well. I believe that we can stop the nasogastric tube. Perhaps, we can even begin clear liquids. I will discuss with Dr. Melendez. In the interim, we will also continue broad-spectrum intravenous antibiotics. cc: Servando Scott MD
--- NOTE | 2019-06-11 12:33 | GENERAL SURGERY PROGRESS NOTE ---
DATE: 06/11/2019 SUBJECTIVE: Tolerated NG tube to gravity. No nausea, vomiting. No increased distention. No fevers. Low-grade tachycardia but this has been kind of fluctuating. Blood pressure 144/90, oxygen saturation 99%. General, he is alert. His abdomen is soft, less distended. Incision is intact. Ostomy is pink, viable, but air in the bag. He has not had repeat labs other than a glucose 71. ASSESSMENT/PLAN: This is a 58-year-old gentleman status post Jessica's procedure. His drain is clear. Will remove his NG tube today, low volume clear liquids, aggressive pulmonary toileting, out of bed as much as possible. Pain seems to be improving. cc: MD Servando Pelletier MD
[2019-06-11] MEDS: ZOFRAN IV PRN (16:10)
[2019-06-11] MEDS: LOVENOX SUBQ SCH (16:19)
[2019-06-11] MEDS: PHENERGAN IV PRN (18:59)
[2019-06-12] MEDS: MORPHINE IV PRN ×6 (00:10→22:35)
[2019-06-12] MEDS: DUONEB (A & A) INH SCH ×6 (03:20→23:17)
[2019-06-12] MEDS: FLAGYL 500 MG/NS 500 MG/100 ML IVPB IV SCH ×4 (04:35→22:36)
[2019-06-12] MEDS: NS 1,000 ML IV SCH ×3 (04:35→19:01)
[2019-06-12] MEDS: NON-FORMULARY MED (Fluticasone/Umeclidin/Vilanter [Trelegy Ellipta 100-62.5-25] 0 EA) INH SCH (07:40)
[2019-06-12] MEDS: PROTONIX IV SCH (08:47)
[2019-06-12] MEDS: ZOLOFT PO SCH (08:48)
[2019-06-12] MEDS: COZAAR PO SCH (08:48)
[2019-06-12] MEDS: LEVAQUIN 500 MG/D5W 500 MG/100 ML IVPB IV SCH ×2 (08:49→10:44)
--- NOTE | 2019-06-12 10:58 | PROGRESS NOTE ---
DATE: 06/12/2019 SUBJECTIVE: Mr. Cat has a history of hypertension. Blood pressure is trending down since we resumed Cozaar. Today, his blood pressure was 135/85. The NG tube was pulled yesterday. He has been sipping liquids. He is having a lot more abdominal cramping and discomfort today. He has had no nausea or vomiting. OBJECTIVE: Vital signs: Temperature 98.2 degrees, pulse 79, respirations 18, BP 135/85. CV: Regular rate and rhythm. Lungs: Clear. Abdomen: Diffusely tender with hypoactive bowel sounds. No rebound or guarding. ASSESSMENT AND PLAN: 1. Acute diverticulitis with ruptured diverticulum and small bowel obstruction status post Jessica procedure. He is passing some small amounts of flatus per the colostomy. He is having more abdominal cramping. I have asked him to just to try ice chips today. I am afraid that we may have advanced his diet a little bit too quickly given the increasing cramping and abdominal discomfort. 2. Hypertension. Blood pressure is stable. We will continue Cozaar 25 mg daily. cc: Servando Scott MD
--- NOTE | 2019-06-12 12:43 | GENERAL SURGERY PROGRESS NOTE ---
DATE: 06/12/2019 SUBJECTIVE: A little bit of ostomy output. No fevers. No tachycardia. Tolerated NG tube removal, but he is a little distended. OBJECTIVE: Vital Signs: High 90s on 3 L. Abdomen: Soft. Incision intact. STACY drain serosanguineous. Ostomy is pink and viable. LABORATORY DATA: No new labs this morning. His last potassium was low. ASSESSMENT AND PLAN: At this juncture. I think it would be reasonable to start him on peripheral nutrition to help support him through this. I do not think we need to do full strength TPN as I do anticipate return of bowel function relatively soon. However, we do need to optimize electrolytes, potassium greater than 4, magnesium greater than 2. I have encouraged him to be out of bed and ambulating which he is trying to do as best he can. I will follow along. Dr. Jones is manager money this weekend. cc: MD Servando Pelletier MD
[2019-06-12] MEDS: PHENERGAN IV PRN ×2 (13:03→17:01)
[2019-06-12] MEDS: LOVENOX SUBQ SCH (16:43)
[2019-06-13] MEDS: PHENERGAN IV PRN ×5 (00:26→20:48)
[2019-06-13] MEDS: DUONEB (A & A) INH SCH ×6 (03:09→23:24)
[2019-06-13] MEDS: MORPHINE IV PRN ×5 (03:28→20:47)
[2019-06-13] MEDS: NS 1,000 ML IV SCH ×2 (05:53→08:10)
[2019-06-13] MEDS: FLAGYL 500 MG/NS 500 MG/100 ML IVPB IV SCH ×4 (05:53→23:21)
--- NOTE | 2019-06-13 07:05 | GENERAL SURGERY PROGRESS NOTE ---
DATE: 06/13/2019 SUBJECTIVE: Patient seems to be doing okay. He has not really had any ostomy output, except for weeping, but he is not sick to his stomach. OBJECTIVE: Vital Signs: Patient is currently afebrile. Vital signs are stable. General exam: No acute distress. Cardiovascular: Regular rate and rhythm. Lungs: Grossly clear. Abdomen: Soft, appropriately tender. Ostomy appears viable with weeping. ASSESSMENT AND PLAN: A 58-year-old gentleman status post Jessica's procedure. 1. Postoperative state at this time. He has had a little bit sluggish return of bowel function, so we will start him on Clinimix. We will adjust his intravenous fluids appropriately. Hopefully, he will turn around the corner, but given the fact that he has got issues, we will need to be proactive. We will continue to monitor him. cc: MD Servando Villatoro MD
[2019-06-13] MEDS: NON-FORMULARY MED (Fluticasone/Umeclidin/Vilanter [Trelegy Ellipta 100-62.5-25] 0 EA) INH SCH (07:59)
[2019-06-13] MEDS: CLINIMIX E 4.25%-5% SOLUTION 1,000 ML IV SCH (08:07)
[2019-06-13] MEDS: ZOLOFT PO SCH (08:08)
[2019-06-13] MEDS: COZAAR PO SCH (08:08)
[2019-06-13] MEDS: PROTONIX IV SCH (08:09)
[2019-06-13] MEDS: LEVAQUIN 500 MG/D5W 500 MG/100 ML IVPB IV SCH ×2 (08:10→12:13)
--- NOTE | 2019-06-13 11:39 | PROGRESS NOTE ---
DATE: 06/13/2019 SUBJECTIVE: Mr. Cat was admitted on 06/05/2019. He came in with diverticulitis, lower abdominal pain. He reports that he is feeling better. He would like to try some ice cream, so I think we can advance him to a full liquid diet. OBJECTIVE: Vital Signs: His temperature is 98 degrees, remains afebrile. Pulse 77, respirations 20, blood pressure 159/107. His last several blood pressures were 162/107, 135/85, 146/97, 159/107. Eyes: Pupils are equal and round. Lungs: Clear in all lung harrell. Cardiovascular exam: Regular rhythm and rate without murmur or S3. Abdomen: Soft. Skin: Warm and dry. : Urine output is 1600 mL. ASSESSMENT AND PLAN: 1. Ruptured diverticulum, small-bowel obstruction, status post Jessica procedure with appendectomy. He is moving bowels a little bit. Nasogastric tube I think is out at this time. He would like to try to advance his diet to full liquid. I think we can try that. 2. Chronic respiratory failure, hypoxemia. He is on home oxygen, doing better with air and gas exchange. REVIEW OF HIS ORDERS: He is on amino acids at 50 mL an hour, getting Flagyl 500 mg IV q. 6 hours, Levaquin 500 mg IV q. 24 hours, Cozaar 25 mg a day, normal saline at 50 mL an hour, Zoloft at 25 mg a day, Protonix 40 mg IV q. 24 hours. LABORATORY DATA: White count 7960, that was on the . Hematocrit 36, platelet count 218,000. Electrolytes from the unremarkable as well. So, continue present regimen. cc: MD Servando Funes MD
[2019-06-13] MEDS: LOVENOX SUBQ SCH (16:34)
[2019-06-13] MEDS: MYLICON PO PRN (18:34)
[2019-06-14] MEDS: MORPHINE IV PRN ×5 (02:16→23:26)
[2019-06-14] MEDS: ZOFRAN IV PRN ×3 (02:16→12:20)
[2019-06-14] MEDS: NS 1,000 ML IV SCH ×2 (04:37→23:27)
[2019-06-14] MEDS: CLINIMIX E 4.25%-5% SOLUTION 1,000 ML IV SCH ×2 (04:37→23:26)
[2019-06-14] MEDS: FLAGYL 500 MG/NS 500 MG/100 ML IVPB IV SCH ×4 (04:37→23:26)
[2019-06-14] MEDS: DUONEB (A & A) INH SCH ×6 (04:54→23:13)
--- NOTE | 2019-06-14 07:03 | GENERAL SURGERY PROGRESS NOTE ---
DATE: 06/14/2019 SUBJECTIVE: The patient seems to be doing okay. He has had some air in his appliance. He seemed to tolerate his full liquid diet. OBJECTIVE: Vital Signs: The patient is currently afebrile. His vital signs are stable. General Examination: No acute distress. Cardiovascular: Regular rate and rhythm. Lungs: Grossly clear. Abdomen: Soft, nondistended. Appropriately tender. Incision seems to be healing. Ostomy appliance in place. Ostomy appears to be viable. STACY drain with 140 mL recorded out, more on the serosanguineous site. ASSESSMENT AND PLAN: A 58-year-old gentleman, status post Jessica procedure. Postoperative state. At this time, I think he is having return of bowel function. We will keep him on his Clinimix, keep him on a full liquid diet for right now. We will continue to monitor him. cc: MD Servando Villatoro MD
[2019-06-14] MEDS: MYLICON PO PRN ×2 (07:17→19:33)
[2019-06-14] MEDS: COZAAR PO SCH (08:09)
[2019-06-14] MEDS: ZOLOFT PO SCH (08:09)
[2019-06-14] MEDS: PROTONIX IV SCH (08:10)
[2019-06-14] MEDS: LEVAQUIN 500 MG/D5W 500 MG/100 ML IVPB IV SCH (09:55)
[2019-06-14] MEDS: NON-FORMULARY MED (Fluticasone/Umeclidin/Vilanter [Trelegy Ellipta 100-62.5-25] 0 EA) INH SCH (12:03)
--- NOTE | 2019-06-14 13:48 | PROGRESS NOTE ---
DATE: 06/14/2019 SUBJECTIVE: Mr. Cat kind of had a rough night, had a lot of gas. It is uncomfortable, but he is passing gas. OBJECTIVE: Vital Signs: Temp 97.7 degrees, remains afebrile, pulse 86, respirations 18, blood pressure 154/100. HEENT: Pupils are equal. Neck: No distended neck veins. Lungs: Clear in all lung harrell. Cardiovascular: Regular rhythm and rate without murmur or S3. Urine output was 2900 mL. ASSESSMENT AND PLAN: 1. He is status post Jessica procedure, and he is getting return of bowel function, which is uncomfortable. We are going to continue his Clinimix. He had a ruptured diverticulum with small-bowel obstruction when he came. 2. Chronic respiratory failure, hypoxemia, on home oxygen at home. His air and gas exchange seem to be good. REVIEW OF ORDERS: He is on Tylenol 650 mg p.o. p.r.n. He is on Clinimix at 50 mL an hour. He is getting Lovenox at 40 mg subcutaneously every 24 hours, Flagyl at 500 mg IV every 6 hours, Levaquin at 500 mg IV every 24 hours, Cozaar 25 mg a day, normal saline at 50 mL an hour, Zoloft 25 mg a day. We are giving him simethicone 80 mg 4 times a day p.r.n. That is his biggest complaint is the discomfort of passing gas. cc: MD Servando Funes MD
[2019-06-14] MEDS: PHENERGAN IV PRN (15:51)
[2019-06-14] MEDS: LOVENOX SUBQ SCH (17:52)
[2019-06-14] MEDS: TYLENOL PO PRN (19:28)
[2019-06-14] MEDS: FLOMAX PO SCH (21:46)
[2019-06-15] MEDS: DUONEB (A & A) INH SCH ×6 (03:33→22:49)
[2019-06-15] MEDS: FLAGYL 500 MG/NS 500 MG/100 ML IVPB IV SCH ×4 (04:32→23:04)
[2019-06-15 06:36] LABS: BASO# 0.02 X1000 (0.0-0.2); BASO% 0.3 % (0.0-0.8); EOS# 0.14 X1000 (0.0-0.7); HEMATOCRIT 32.9 % (42.0-52.0); HEMOGLOBIN 10.3 g/dL (14.0-18.0); LYMPH# 0.76 X1000 (1.2-3.4); LYMPH% 10.6 % (20.5-51.1); MCH 27.3 PG (27-31); MCHC 31.3 g/dL (33-37); MCV 87.3 FL (81-99); MPV 9.7 FL (7.4-10.4); NEUT# 5.75 X1000 (1.4-6.5); NEUT% 80.1 % (42.2-75.2); PLT 308 X1000 (130-400); RBC 3.77 XMIL (4.7-6.1); RDW 14.6 % (11.5-14.5); WBC 7.17 X1000 (4.8-10.8)
--- NOTE | 2019-06-15 06:44 | GENERAL SURGERY PROGRESS NOTE ---
DATE: 06/15/2019 SUBJECTIVE: The patient is doing well. He has had some ostomy output. He has tolerated his full liquids. OBJECTIVE: Vital Signs: The patient is currently afebrile. Vital signs are stable. General Examination: No acute distress. Cardiovascular: Regular rate and rhythm. Lungs: Grossly clear. Abdomen: Soft. Appropriately tender. STACY drain in place, still with some serosanguineous output. ASSESSMENT AND PLAN: A 58-year-old gentleman with status post Jessica's procedure. Postoperative state. At this time, I think his postoperative ileus is improving. We will put him on a gastrointestinal soft diet. We will still keep him on his intravenous fluids. He is getting a little bit of swelling but I want to make sure he can tolerate his oral intake. Hopefully, we can start backing off his intravenous fluids. cc: MD Servando Villatoro MD
[2019-06-15 07:11] LABS: AGAP 8; ALB/GLOB RATIO 1.3; ALBUMIN 2.6 g/dL (3.5-5.0); ALKALINE PHOSPHATASE 35 U/L (32-122); BUN 15 mg/dL (8-22); CALCIUM 7.9 mg/dL (8.8-10.2); CHLORIDE 104 mmol/L (98-107); COSMO 289; CREATININE 0.5 mg/dL (0.7-1.2); ESTIMATED GFR > 60; GLUCOSE 122 mg/dL (70-104); GOT 18 U/L (10-34); GPT 10 U/L (10-44); MAGNESIUM 1.9 mg/dL (1.5-2.7); POTASSIUM 3.1 mmol/L (3.5-5.1); SODIUM 144 mmol/L (136-145); TCO2 32 mmol/L (25-35); TOTAL BILIRUBIN 0.22 mg/dL (0.20-1.00); TOTAL PROTEIN 4.6 g/dL (6.3-8.3)
[2019-06-15] MEDS: NON-FORMULARY MED (Fluticasone/Umeclidin/Vilanter [Trelegy Ellipta 100-62.5-25] 0 EA) INH SCH (07:45)
[2019-06-15] MEDS: MORPHINE IV PRN ×4 (08:42→20:38)
[2019-06-15] MEDS: COZAAR PO SCH (08:46)
[2019-06-15] MEDS: ZOLOFT PO SCH (08:46)
[2019-06-15] MEDS: SODIUM CHLORIDE 0.9% INJ SCH (08:47)
[2019-06-15] MEDS: PROTONIX IV SCH (08:47)
[2019-06-15] MEDS: MYLICON PO PRN (08:57)
[2019-06-15] MEDS: ZOFRAN IV PRN (08:57)
[2019-06-15] MEDS: LEVAQUIN 500 MG/D5W 500 MG/100 ML IVPB IV SCH (09:04)
--- NOTE | 2019-06-15 15:30 | PROGRESS NOTE ---
DATE: 06/15/2019 SUBJECTIVE: Mr. Cat feels better. Still uncomfortable. Passing gas. He is just able to tolerate just eating a few bites of food due to his poor appetite and some nausea. He is stronger. I encouraged him to ambulate some and get out of bed. He remains afebrile. OBJECTIVE: Temperature 98.6 degrees, pulse 96, respirations 15, blood pressure 143/102. Pupils are equal and round. Lungs are clear in all lung harrell. Cardiovascular Examination: Regular rhythm and rate without murmur or S3. Urine output is 2400 mL. ASSESSMENT AND PLAN: Status post Jessica's procedure. Postoperative ileus is improving. He is on a soft diet. Encouraged him to get up out of bed and ambulate some. He is still uncomfortable, passing gas, but he is passing quite a bit of flatus. REVIEW OF HIS ORDERS: He is on Flomax which we started (I think he has a little bit of benign prostatic hypertrophy) to help with bladder emptying at 0.4 mg at bedtime. He is still on his Clinimix at 50 mL an hour. He is getting Flagyl 500 mg IV q.6, Levaquin 500 mg IV q.24 hours, Cozaar 25 mg a day, Protonix 40 mg daily, and Zoloft 25 mg a day. I am giving him simethicone chews 80 mg p.o. 4 times a day as needed. REVIEW OF LABS: White count 7170, hematocrit is 32, hemoglobin 10, stable, platelet count 308,000. Sodium 144, potassium 3.1, chloride 104, BUN 15, creatinine 0.5. cc: MD Servando Funes MD
[2019-06-15] MEDS: LOVENOX SUBQ SCH (16:05)
[2019-06-15] MEDS: CLINIMIX E 4.25%-5% SOLUTION 1,000 ML IV SCH (18:16)
[2019-06-15] MEDS: NS 1,000 ML IV SCH (18:18)
[2019-06-15] MEDS: FLOMAX PO SCH (20:38)
[2019-06-16] MEDS: MORPHINE IV PRN ×4 (02:15→20:48)
[2019-06-16] MEDS: DUONEB (A & A) INH SCH ×6 (03:42→23:11)
[2019-06-16] MEDS: FLAGYL 500 MG/NS 500 MG/100 ML IVPB IV SCH ×3 (04:21→16:49)
[2019-06-16] MEDS: NON-FORMULARY MED (Fluticasone/Umeclidin/Vilanter [Trelegy Ellipta 100-62.5-25] 0 EA) INH SCH (07:48)
[2019-06-16] MEDS: COZAAR PO SCH (08:58)
[2019-06-16] MEDS: ZOLOFT PO SCH (08:58)
--- NOTE | 2019-06-16 08:58 | EKG Report ---
Test Performed on : 06/16/2019 08:40:57 AM Test Reason : tachycardia Blood Pressure : / mmHG Vent. Rate : 111 BPM Atrial Rate : 111 BPM P-R Int : 122 ms QRS Dur : 076 ms QT Int : 344 ms P-R-T Axes : 082 059 064 degrees QTc Int : 467 ms Sinus tachycardia. with occasional premature ventricular complexes. Nonspecific ST and T wave abnormality Abnormal ECG When compared with ECG of 22-DEC-2018 08:27, premature ventricular complexes. are now present Vent. rate has increased BY 50 BPM Non-specific change in ST segment in Inferior leads Confirmed by Humberto Patterson MD ([id number]) on 06/16/2019 3:02:45 PM
[2019-06-16] MEDS: PROTONIX IV SCH (08:59)
[2019-06-16] MEDS: LEVAQUIN 500 MG/D5W 500 MG/100 ML IVPB IV SCH (10:04)
[2019-06-16 11:00] LABS: BASO# 0.04 X1000 (0.0-0.2); BASO% 0.5 % (0.0-0.8); EOS# 0.09 X1000 (0.0-0.7); HEMATOCRIT 35.9 % (42.0-52.0); HEMOGLOBIN 11.3 g/dL (14.0-18.0); LYMPH# 0.48 X1000 (1.2-3.4); LYMPH% 5.6 % (20.5-51.1); MCH 27.3 PG (27-31); MCHC 31.5 g/dL (33-37); MCV 86.7 FL (81-99); MONO# 0.37 X1000 (0.11-0.59); MONO% 4.3 % (1.7-9.3); MPV 9.9 FL (7.4-10.4); NEUT# 7.65 X1000 (1.4-6.5); NEUT% 88.6 % (42.2-75.2); PLT 320 X1000 (130-400); RBC 4.14 XMIL (4.7-6.1); RDW 14.5 % (11.5-14.5); WBC 8.63 X1000 (4.8-10.8)
[2019-06-16 11:19] LABS: AGAP 8; BUN 15 mg/dL (8-22); CALCIUM 8.1 mg/dL (8.8-10.2); CHLORIDE 100 mmol/L (98-107); COSMO 280; CREATININE 0.5 mg/dL (0.7-1.2); ESTIMATED GFR > 60; GLUCOSE 134 mg/dL (70-104); POTASSIUM 3.4 mmol/L (3.5-5.1); SODIUM 139 mmol/L (136-145); TCO2 31 mmol/L (25-35)
--- NOTE | 2019-06-16 11:26 | PROGRESS NOTE ---
DATE: 06/16/2019 SUBJECTIVE: Mr. Cat had an episode this morning while he was sitting up eating breakfast and got a little short of breath, and the monitor room said he went into atrial flutter, but converted back to sinus rhythm. He feels much better now. I did look at electrolytes, and I will supplement his potassium and a little bit of his magnesium. His volume status looks good. PHYSICAL EXAMINATION: Vital Signs: Temp 98, pulse 88, respirations 17, blood pressure 161/94. HEENT: His pupils are equal. Neck: No distended neck veins. CVP appears less than 6 cm. Lungs: Clear in all lung harrell. Cardiovascular: Regular rhythm and rate without murmur or S3. DIAGNOSTIC DATA: EKG shows sinus tachycardia. I do not see any suspicious ST segments. This was done at 8:35 this morning, EKG, and he was in sinus tachycardia, had one PVC, no ST-segment changes, no other significant ectopy. ASSESSMENT AND PLAN: 1. This is a 58-year-old, patient of Dr. Zaheer Scott, postoperative ileus. He had a Jessica's procedure. Seems to be making progress. He is still not real hungry, and has nausea with the smell of most food. He is tolerating sherbert and vanilla pudding, and he is passing gas, which is uncomfortable, but this is improving. 2. General weakness and deconditioning. He is getting some physical therapy. He has not really ambulated yet. 3. Episode this morning of atrial flutter. I do not see any evidence of cardiac ischemia. Will supplement his potassium and magnesium, and hopefully he can go home in the next couple of days. REVIEW OF ORDERS: He is on Flomax 0.4 mg at bedtime. He is still getting Clinimix at 50 mg an hour. He is on Flagyl 500 mg IV every 6 hours, and Levaquin 500 mg every 24 hours, Protonix 40 mg IV every 24 hours, Zoloft 25 mg a day, simethicone chew 80 mg p.o. 4 times a day, potassium chloride 40 mEq I am going to give him IV today, and started him on magnesium oxide 800 mg b.i.d. Recheck electrolytes, magnesium, and an EKG in the morning. cc: MD Servando Funes MD
--- NOTE | 2019-06-16 11:31 | PROGRESS NOTE ---
DATE: 06/16/2019 ADDENDUM: Note, his blood pressure has been running a little bit high and so with his episode of atrial flutter, I am going to put him on some Lopressor 25 mg twice a day and supplement his potassium and magnesium. cc: MD Servando Funes MD
[2019-06-16 11:48] LABS: BANDS 2 % (0-1); HYPOCHROM 1+; LYMPHS 8 % (21-51); MONO 6 % (1-9); SEGS 82 % (42-75)
[2019-06-16] MEDS: LOPRESSOR PO SCH ×2 (11:49→20:48)
[2019-06-16] MEDS: MAG-OX PO SCH ×2 (11:50→20:48)
[2019-06-16] MEDS: POTASSIUM CHLORIDE 20 MEQ/SWI 20 MEQ/100 ML IVPB IV SCH ×2 (11:54→14:14)
[2019-06-16] MEDS: CLINIMIX E 4.25%-5% SOLUTION 1,000 ML IV SCH (15:48)
[2019-06-16] MEDS: LOVENOX SUBQ SCH (16:48)
--- NOTE | 2019-06-16 17:09 | GENERAL SURGERY PROGRESS NOTE ---
DATE: 06/16/2019 SUBJECTIVE: His ostomy is functioning. He is feeling better. He had some shortness of breath with the eating yesterday. This seems to have resolved. He is ambulating and voiding. No fevers. No tachycardia. I reviewed his labs. LABS: White count is 8, hematocrit 35. Creatinine 0.5, potassium is low, but it is better. ASSESSMENT AND PLAN: A 58-year-old gentleman status post Jessica's procedure. Seems to be doing well. Pulmonary is his main issue. Some electrolyte derangements I believe related to his diuresis. We will continue to optimize all this. Hopefully in the next 48 hours we can let him go. His incision is intact. STACY drainage is serosanguineous. cc: MD Servando Pelletier MD
[2019-06-16] MEDS: FLOMAX PO SCH (20:48)
[2019-06-17] MEDS: FLAGYL 500 MG/NS 500 MG/100 ML IVPB IV SCH ×5 (00:45→22:21)
[2019-06-17] MEDS: MORPHINE IV PRN ×6 (00:51→22:21)
[2019-06-17] MEDS: DUONEB (A & A) INH SCH ×6 (03:44→23:52)
[2019-06-17 06:35] LABS: AGAP 10; BUN 13 mg/dL (8-22); CALCIUM 8.1 mg/dL (8.8-10.2); CHLORIDE 101 mmol/L (98-107); COSMO 278; CREATININE 0.4 mg/dL (0.7-1.2); ESTIMATED GFR > 60; GLUCOSE 99 mg/dL (70-104); POTASSIUM 4.3 mmol/L (3.5-5.1); SODIUM 139 mmol/L (136-145); TCO2 28 mmol/L (25-35)
[2019-06-17] MEDS: NON-FORMULARY MED (Fluticasone/Umeclidin/Vilanter [Trelegy Ellipta 100-62.5-25] 0 EA) INH SCH (07:30)
--- NOTE | 2019-06-17 07:48 | EKG Report ---
Test Performed on : 06/17/2019 06:18:09 AM Test Reason : CP Blood Pressure : / mmHG Vent. Rate : 079 BPM Atrial Rate : 079 BPM P-R Int : 126 ms QRS Dur : 074 ms QT Int : 382 ms P-R-T Axes : 000 027 041 degrees QTc Int : 438 ms Normal sinus rhythm. Normal ECG When compared with ECG of 16-JUN-2019 08:40, premature ventricular complexes. are no longer present Confirmed by Ana MCKINNEY, Marcelo Lyle ([id number]) on 06/19/2019 9:09:40 AM
[2019-06-17] MEDS: ZOLOFT PO SCH (08:30)
[2019-06-17] MEDS: MAG-OX PO SCH ×2 (08:31→20:18)
[2019-06-17] MEDS: LOPRESSOR PO SCH ×2 (08:31→20:18)
[2019-06-17] MEDS: COZAAR PO SCH (08:31)
[2019-06-17] MEDS: PROTONIX IV SCH (08:31)
[2019-06-17] MEDS: LEVAQUIN 500 MG/D5W 500 MG/100 ML IVPB IV SCH (10:03)
[2019-06-17] MEDS: CLINIMIX E 4.25%-5% SOLUTION 1,000 ML IV SCH (11:20)
--- NOTE | 2019-06-17 16:01 | PROGRESS NOTE ---
DATE: 06/17/2019 SUBJECTIVE: Mr. Cat had a history of an episode of atrial flutter which spontaneously converted back to normal sinus rhythm. He remains in a sinus tachycardia. He denies any chest pain, palpitations, or anginal equivalents. Blood pressure has been fluctuating. He is tolerating a GI soft diet without nausea or vomiting. He still has some abdominal cramping. His appetite is still poor. He has passed loose stools via the colostomy. OBJECTIVE: Vital signs: Temperature 98.2 degrees, pulse 89, respirations 20, BP 150/92. CV: Tachycardic. Regular S1, S2. Lungs: Clear. Abdomen: Soft. Mildly tender. No rebound or guarding. He has good bowel sounds. ASSESSMENT AND PLAN: 1. Paroxysmal atrial flutter. He remains in sinus tachycardia. I will increase the Toprol-XL to 50 mg b.i.d. 2. Small bowel obstruction and ileus, status post Jessica procedure. We will continue a GI soft diet. We will continue physical therapy and increase his activity. We will make arrangements for home health at the time of discharge. cc: Servando Scott MD
--- NOTE | 2019-06-17 17:02 | GENERAL SURGERY PROGRESS NOTE ---
DATE: 06/17/2019 SUBJECTIVE: His ostomy is functioning. No significant pain. He is ambulating. He has had a better day from a lung standpoint. He is tolerating a diet. No fevers. No tachycardia. No new concerns. His renal function is 0.4. His potassium is up to 4.3. ASSESSMENT AND PLAN: A 58-year-old gentleman status post Jessica's procedure. He is doing well from a surgical perspective. Pulmonary is his main issue right now. We will keep the andreina. Remove his drain tomorrow and continue ostomy education. Aggressive pulmonary toilet and electrolyte repletion. He is on Lovenox. cc: MD Seravndo Pelletier MD
[2019-06-17] MEDS: LOVENOX SUBQ SCH (17:22)
[2019-06-17] MEDS: FLOMAX PO SCH (20:18)
[2019-06-18] MEDS: MORPHINE IV PRN ×5 (03:11→20:15)
[2019-06-18] MEDS: FLAGYL 500 MG/NS 500 MG/100 ML IVPB IV SCH ×4 (05:14→23:22)
[2019-06-18] MEDS: DUONEB (A & A) INH SCH ×6 (05:51→23:16)
[2019-06-18] MEDS: CLINIMIX E 4.25%-5% SOLUTION 1,000 ML IV SCH (06:15)
[2019-06-18] MEDS: NON-FORMULARY MED (Fluticasone/Umeclidin/Vilanter [Trelegy Ellipta 100-62.5-25] 0 EA) INH SCH (07:44)
[2019-06-18] MEDS: SODIUM CHLORIDE 0.9% INJ SCH (08:25)
[2019-06-18] MEDS: PROTONIX IV SCH (08:25)
[2019-06-18] MEDS: COZAAR PO SCH (08:26)
[2019-06-18] MEDS: LOPRESSOR PO SCH ×2 (08:26→20:15)
[2019-06-18] MEDS: MAG-OX PO SCH ×2 (08:26→20:15)
[2019-06-18] MEDS: ZOLOFT PO SCH (08:27)
[2019-06-18] MEDS: LEVAQUIN 500 MG/D5W 500 MG/100 ML IVPB IV SCH (09:47)
--- NOTE | 2019-06-18 12:42 | GENERAL SURGERY PROGRESS NOTE ---
DATE: 06/18/2019 SUBJECTIVE: Feels much better. No fevers. No tachycardia. His breathing is better. He is tolerating a diet. Ostomy is functioning. OBJECTIVE: His abdomen is soft. Incisions intact. STACY draining serosanguineous. ASSESSMENT AND PLAN: A gentleman status post Jessica's. He is doing well. We will continue ostomy education, pulmonary toileting, physical therapy. I suspect he can go home in the near future with oral antibiotics. I will remove the andreina next week. I removed his drain today. cc: MD Servando Pelletier MD
--- NOTE | 2019-06-18 14:26 | PROGRESS NOTE ---
DATE: 06/18/2019 SUBJECTIVE: Mr. Cat continues to improve clinically. He is tolerating a GI soft diet without nausea, vomiting, or abdominal pain. Ostomy is functioning well. Blood pressure has been somewhat labile. He denies any chest pain, palpitations, or anginal equivalents. OBJECTIVE: Vital signs: Blood pressure 160/100, pulse 84, respiratory rate 16, temperature 97.3 degrees. CV: Regular rate and rhythm. Lungs: Clear. Abdomen: Soft, nontender, with active bowel sounds. ASSESSMENT AND PLAN: Hypertension. Blood pressure is still too high. I will increase the losartan to 50 mg daily. cc: Servando Scott MD
[2019-06-18] MEDS: LOVENOX SUBQ SCH (18:28)
[2019-06-18] MEDS: FLOMAX PO SCH (20:15)
[2019-06-19] MEDS: MORPHINE IV PRN ×4 (00:18→12:46)
[2019-06-19] MEDS: CLINIMIX E 4.25%-5% SOLUTION 1,000 ML IV SCH (02:23)
[2019-06-19] MEDS: DUONEB (A & A) INH SCH ×3 (04:07→11:19)
[2019-06-19] MEDS: FLAGYL 500 MG/NS 500 MG/100 ML IVPB IV SCH (04:43)
[2019-06-19] MEDS: NON-FORMULARY MED (Fluticasone/Umeclidin/Vilanter [Trelegy Ellipta 100-62.5-25] 0 EA) INH SCH (07:49)
[2019-06-19] MEDS: LOPRESSOR PO SCH (08:32)
[2019-06-19] MEDS: SODIUM CHLORIDE 0.9% INJ SCH (08:32)
[2019-06-19] MEDS: PROTONIX IV SCH (08:32)
[2019-06-19] MEDS: MAG-OX PO SCH (08:33)
[2019-06-19] MEDS: COZAAR PO SCH (08:33)
[2019-06-19] MEDS: LEVAQUIN 500 MG/D5W 500 MG/100 ML IVPB IV SCH ×2 (08:33→12:46)
[2019-06-19] MEDS: ZOLOFT PO SCH (08:34)
--- NOTE | 2019-06-19 10:29 | DISCHARGE SUMMARY ---
ADMISSION DATE: 06/05/2019 DISCHARGE DATE: 06/19/2019 DISCHARGE DIAGNOSES: 1. Acute diverticulitis of the intestine. 2. Small bowel obstruction due to ruptured diverticulum. 3. Free intraperitoneal air. 4. Ileus following gastrointestinal surgery (Jessica's procedure) . 5. Chronic respiratory failure with hypoxia on continuous home oxygen at 3 liters per nasal cannula. 6. Chronic obstructive pulmonary disease. 7. Sarcoidosis of the lung. 8. Previous history of nicotine abuse. 9. Gastroesophageal reflux disease. 10. Major depression. 11. Essential hypertension. 12. Transient atrial flutter. DISCHARGE INSTRUCTIONS: 1. The patient will follow up in 7 to 10 days to see me, Dr. Zaheer Scott, for a transition of care visit. 2. Activity as tolerated. 3. GI soft diet. DISCHARGE MEDICATIONS: 1. Pantoprazole 40 mg daily. 2. Phenergan 25 mg q. 6 hours p.r.n. nausea, vomiting. 3. Bartlett 5 one q. 8 hours p.r.n. pain #15. 4. Lopressor 50 mg b.i.d. 5. Magnesium oxide 800 mg b.i.d. 6. Losartan 50 mg daily. 7. Trelegy inhaler 1 inhalation daily. 8. Proventil MDI 2 puffs q. 6 hours p.r.n. shortness of breath. 9. Sertraline 25 mg daily. DISCHARGE PHYSICAL EXAMINATION: General: This is a pleasant, somewhat frail, 58-year-old gentleman in no apparent distress. Vital Signs: He is afebrile. Pulse 82, respirations 16, BP 132/91. CV: Regular rate and rhythm. Lungs: Distant breath sounds with increased period of expiration. No wheezing was appreciated. Abdomen: Soft, nontender, with active bowel sounds. There is evidence of stool and flatus in the colostomy bag. HOSPITAL COURSE: Mr. Cat was initially admitted to [facility] as an outpatient with Observation Services for evaluation of abdominal pain. He presented to my office with right lower quadrant abdominal pain in association with nausea and vomiting. His initial CT scan of the abdomen and pelvis demonstrated no evidence of appendicitis, but he had inflammatory changes around the sigmoid colon consistent with acute diverticulitis. No free air or small bowel obstruction was noted. The patient was initially held n.p.o., and we started broad-spectrum antibiotics, including Levaquin and Flagyl. Over the weekend, he developed worsening abdominal pain, nausea, vomiting and abdominal distention. A follow up CT scan of the abdomen and pelvis demonstrated severe progression in both the inflammatory process and proximal small bowel obstruction. There was ascites and a small amount of free abdominal air. We were concerned that he had a ruptured diverticulum. Dr. Melendez was consulted to see the patient and performed emergency surgery. He had a successful Jessica's procedure, as well as an appendectomy. His postoperative course was complicated by the development of a postoperative ileus. An NG tube was placed to low Gomco suction. He required NG tube to low suction for several days. As his bowel began to wake up, we placed the NG tube to gravity and began ice chips. We advanced him to sips of clear liquids. He eventually was tolerating clear liquids without nausea, vomiting, or worsening abdominal pain. The NG tube was pulled. He was advanced to a GI soft diet which he was tolerating without nausea, vomiting, or abdominal pain. Wound Care was consulted to see the patient, and instructed the patient and the family on care of the colostomy. During his hospitalization, he had an episode of transient atrial flutter. He spontaneously converted back to normal sinus rhythm. However, his heart rates remained elevated. We slowly increased the dosage of Lopressor to 50 mg b.i.d. with good control of his heart rate. As the atrial flutter was transient, we did not believe that he required long-term anticoagulation with medicines like Pradaxa. He does have a longstanding history of essential hypertension. His blood pressure fluctuated during the hospitalization. We made various adjustments in his medications. We increased the losartan to 50 mg daily and metoprolol to 50 mg b.i.d. with stabilization of his blood pressure. He does have a longstanding history of chronic respiratory failure with hypoxia, secondary to COPD on continuous home oxygen at 3 L per nasal cannula. Serial chest x-rays demonstrated chronic COPD type changes. He was maintained on Trelegy and DuoNeb nebulizer treatments while hospitalized. He maintained good O2 saturations throughout his hospitalization. We have made arrangements for home health. Having reached maximum hospital benefit, the patient was discharged in stable condition. cc: Servando Scott MD
[2019-06-19 11:16] VITALS: BP 118/79
--- NOTE | 2019-06-19 17:16 | GENERAL SURGERY PROGRESS NOTE ---
DATE: 06/19/2019 SUBJECTIVE: He is doing well. Bowels are functioning. He is tolerating a diet, his drain is out. He is eating. His abdomen is soft. His incision is intact. From a pulmonary standpoint he is near his baseline. OBJECTIVE: On exam, he is afebrile. No tachycardia. ASSESSMENT AND PLAN: This is a gentleman with perforated diverticulitis status post Jessica's procedure. He is doing well. Feel as though he has had 2 weeks of IV antibiotics, probably completed this course. He is tolerating a diet. He is comfortable with his ostomy. Plan is for him to go home. We will see him in a week to remove his andreina, given him postoperative instructions. cc: MD Servando Pelletier MD
== END 2019-06-19 13:20 | disposition home health service (06) | DRG 330 ==
LOC: DIRADM → OBSVTOIN 08:58 → 4N 09:43 → 2N 06-07 21:33
PROVIDERS: ADMIT Internal Medicine; ATTEND Internal Medicine
PROC: GE.COLS (2019-06-07 18:26)